=== PATIENT | female | born 1950 | race Caucasian/White ===

== ENCOUNTER 2017-04-15 11:39 | Inpatient (IN) | payer MEDICARE, MEDICAID ==
[~2017-04-15] VITALS: Ht 165.1 cm; Wt 77.1 kg
[2017-04-15] VITALS (10 sets, daily range): BP systolic 115–208; BP diastolic 58–85; PULSE 66–75; RESP 12–22; TEMP 97.3–98.5; O2SAT 8–98
[2017-04-15] MEDS ORDERED: PANTOPRAZOLE INJ 80 MG in SODIUM CHLORIDE 0.9% INJ 35 ML IV ONE (12:11)
--- NOTE | 2017-04-15 12:17 | PD ---
HPI Chief Complaint: GI Complaint Time Seen by Provider: 12:01 Travel History International Travel<30 days: No Contact w/Intl Traveler<30days: No Traveled to known affect area: No History of Present Illness HPI 67yo F with PMH of aortic valve replacement on coumadin, HTN, DM, CHF, COPD presents to the ED with c/o lower abdominal pain for a few days. States it is cramping, intermittent and mainly mid lower abdomen. Pt has been having intermittent episodes of bright red blood per rectum as well as blood diarrhea since yesterday. Had vomiting a few days ago but no longer nauseous and no blood in vomit. Pt states she does not feel more sob than normal. Denies any fever, chest pain, dysuria, hematuria, focal weakness or numbness. Does not remember last colonoscopy. PFSH Past Medical History Hx Anticoagulant Therapy: Yes Cardiovascular Problems: Yes Cerebrovascular Accident: Yes Diabetes: Yes Respiratory: Yes ?: Not Past Surgical History Hysterectomy: Yes Social History Tobacco Use: No Allergies-Medications (Allergen,Severity, Reaction): Coded Allergies: Penicillins (Verified Allergy, Unknown, 04/15/17) Reported Meds & Prescriptions Reported Meds & Active Scripts Active Reported Clonidine (Clonidine HCl) 0.1 Mg Tab 0.1 Mg PO DAILY Lasix (Furosemide) 40 Mg Tab 40 Mg PO BID Gabapentin 300 Mg Cap 300 Mg PO Q8HR Oxycodone (Oxycodone HCl) 30 Mg Tab 30 Mg PO Q12HR PRN Potassium Chloride Microencaps 20 Meq Tab 20 Meq PO BID Meclizine (Meclizine HCl) 12.5 Mg Tab 12.5 Mg PO BID PRN Jantoven (Warfarin) 5 Mg Tab 5 Mg PO DAILY Aricept (Donepezil HCl) 10 Mg Tablet 10 Mg PO DAILY Trazodone (Trazodone HCl) 50 Mg Tab 100 Mg PO DAILY Tizanidine (Tizanidine HCl) 2 Mg Cap 2 Mg PO DAILY PRN Review of Systems Except as stated in HPI: all other systems reviewed are Neg Physical Exam Narrative GENERAL: 67yo F in mild distress. SKIN: Focused skin assessment warm/dry. HEAD: Atraumatic. Normocephalic. EYES: Pupils equal and round. No scleral icterus. No injection or drainage. CARDIOVASCULAR: Regular rate and rhythm. No murmur appreciated. RESPIRATORY: No accessory muscle use. Clear to auscultation. Breath sounds equal bilaterally. GASTROINTESTINAL: Abdomen soft, +TTP suprapubic and LLQ. No rebound tenderness or guarding. RECTAL: No external hemorrhoids. Brown stool but hemaprompt positive. MUSCULOSKELETAL: No obvious deformities. No clubbing. No cyanosis. Bilateral lower extremity edema. NEUROLOGICAL: Awake and alert. No obvious cranial nerve deficits. Motor grossly within normal limits. Normal speech. PSYCHIATRIC: Appropriate mood and affect; insight and judgment normal. Data Data Last Documented VS Vital Signs Date Time Temp Pulse Resp B/P (MAP) Pulse Ox O2 Delivery O2 Flow Rate FiO2 04/15/17 14:20 16 04/15/17 14:16 75 138/65 (89) 96 Room Air 04/15/17 11:42 98.5 Orders Orders Complete Blood Count With Diff (04/15/17 12:11) Comprehensive Metabolic Panel (04/15/17 12:11) Lipase (04/15/17 12:11) Prothrombin Time / Inr (Pt) (04/15/17 12:11) Act Partial Throm Time (Ptt) (04/15/17 12:11) Urinalysis - C+S If Indicated (04/15/17 12:11) Type And Screen (04/15/17 12:11) Ecg Monitoring (04/15/17 12:11) Iv Access Insert/Monitor (04/15/17 12:11) Oximetry (04/15/17 12:11) Sodium Chloride 0.9% Flush (Ns Flush) (04/15/17 12:15) Sodium Chloride 0.9... W/Pantoprazole In (04/15/17 12:11) Sodium Chloride 0.9... W/Pantoprazole In (04/15/17 12:11) Ct Abd/Pel W Iv Contrast(Rout) (04/15/17 ) Morphine Inj (Morphine Inj) (04/15/17 13:45) Iohexol 350 Inj (Omnipaque 350 Inj) (04/15/17 13:54) Admit Order (Ed Use Only) (04/15/17 14:32) Labs Laboratory Tests Test 04/15/17 12:20 04/15/17 14:30 White Blood Count 13.0 TH/MM3 Red Blood Count 5.59 MIL/MM3 Hemoglobin 14.0 GM/DL Hematocrit 44.0 % Mean Corpuscular Volume 78.7 FL Mean Corpuscular Hemoglobin 25.1 PG Mean Corpuscular Hemoglobin Concent 31.9 % Red Cell Distribution Width 20.4 % Platelet Count 292 TH/MM3 Mean Platelet Volume 7.9 FL Neutrophils (%) (Auto) 67.3 % Lymphocytes (%) (Auto) 20.5 % Monocytes (%) (Auto) 9.0 % Eosinophils (%) (Auto) 2.7 % Basophils (%) (Auto) 0.5 % Neutrophils # (Auto) 8.8 TH/MM3 Lymphocytes # (Auto) 2.7 TH/MM3 Monocytes # (Auto) 1.2 TH/MM3 Eosinophils # (Auto) 0.4 TH/MM3 Basophils # (Auto) 0.1 TH/MM3 CBC Comment DIFF FINAL Differential Comment Prothrombin Time 39.4 SEC Prothromb Time International Ratio 3.4 RATIO Activated Partial Thromboplast Time 51.8 SEC Blood Urea Nitrogen 16 MG/DL Creatinine 1.16 MG/DL Random Glucose 115 MG/DL Total Protein 7.1 GM/DL Albumin 3.2 GM/DL Calcium Level 8.8 MG/DL Alkaline Phosphatase 107 U/L Aspartate Amino Transf (AST/SGOT) 19 U/L Alanine Aminotransferase (ALT/SGPT) 20 U/L Total Bilirubin 0.2 MG/DL Sodium Level 139 MEQ/L Potassium Level 3.7 MEQ/L Chloride Level 106 MEQ/L Carbon Dioxide Level 26.9 MEQ/L Anion Gap 6 MEQ/L Estimat Glomerular Filtration Rate 46 ML/MIN Lipase 200 U/L MDM Medical Decision Making Medical Screen Exam Complete: Yes Emergency Medical Condition: Yes Interpretation(s) Laboratory Tests Test 04/15/17 12:20 04/15/17 14:30 White Blood Count 13.0 TH/MM3 (4.0-11.0) Red Blood Count 5.59 MIL/MM3 (4.00-5.30) Hemoglobin 14.0 GM/DL (11.6-15.3) Hematocrit 44.0 % (35.0-46.0) Mean Corpuscular Volume 78.7 FL (80.0-100.0) Mean Corpuscular Hemoglobin 25.1 PG (27.0-34.0) Mean Corpuscular Hemoglobin Concent 31.9 % (32.0-36.0) Red Cell Distribution Width 20.4 % (11.6-17.2) Platelet Count 292 TH/MM3 (150-450) Mean Platelet Volume 7.9 FL (7.0-11.0) Neutrophils (%) (Auto) 67.3 % (16.0-70.0) Lymphocytes (%) (Auto) 20.5 % (9.0-44.0) Monocytes (%) (Auto) 9.0 % (0.0-8.0) Eosinophils (%) (Auto) 2.7 % (0.0-4.0) Basophils (%) (Auto) 0.5 % (0.0-2.0) Neutrophils # (Auto) 8.8 TH/MM3 (1.8-7.7) Lymphocytes # (Auto) 2.7 TH/MM3 (1.0-4.8) Monocytes # (Auto) 1.2 TH/MM3 (0-0.9) Eosinophils # (Auto) 0.4 TH/MM3 (0-0.4) Basophils # (Auto) 0.1 TH/MM3 (0-0.2) CBC Comment DIFF FINAL Differential Comment Prothrombin Time 39.4 SEC (9.8-11.6) Prothromb Time International Ratio 3.4 RATIO Activated Partial Thromboplast Time 51.8 SEC (24.3-30.1) Blood Urea Nitrogen 16 MG/DL (7-18) Creatinine 1.16 MG/DL (0.50-1.00) Random Glucose 115 MG/DL (74-106) Total Protein 7.1 GM/DL (6.4-8.2) Albumin 3.2 GM/DL (3.4-5.0) Calcium Level 8.8 MG/DL (8.5-10.1) Alkaline Phosphatase 107 U/L (45-117) Aspartate Amino Transf (AST/SGOT) 19 U/L (15-37) Alanine Aminotransferase (ALT/SGPT) 20 U/L (10-53) Total Bilirubin 0.2 MG/DL (0.2-1.0) Sodium Level 139 MEQ/L (136-145) Potassium Level 3.7 MEQ/L (3.5-5.1) Chloride Level 106 MEQ/L (98-107) Carbon Dioxide Level 26.9 MEQ/L (21.0-32.0) Anion Gap 6 MEQ/L (5-15) Estimat Glomerular Filtration Rate 46 ML/MIN (>89) Lipase 200 U/L (73-393) Differential Diagnosis AV malformation vs. colitis vs. UTI vs. supratherapeutic INR Narrative Course 67yo F on coumadin with intermittent lower GI bleed since yesterday. States it is a large amount and bright red in the diarrhea. Pt also with abdominal pain that is mainly suprapubic. Pt given protonix bolus and drip. Labs reviewed, mild leukocytosis at 13,000. H/H normal at 14/44. Normal lipase. CMP unremarkable. INR therapeutic at 3.4. Pt given NS IVF and morphine 4mg IV which helped with pain. CTa/p showed no evidence of acute abdominal or pelvic process. Diverticulosis. UA is still pending. Vital signs and H/H is stable right now so will not give K centra to reverse anticoagulation. However, pt is high risk with intermittent large GI bleed and on anticoagulation so will admit to medicine and consult GI. Discussed with resident physician and accepted to Dr. Arevalo's service. [facility]pt Point of Care Internal Pos. & Neg. Controls: Passed Fecal Specimen Occult Blood: Positive Diagnosis Primary Impression: GI bleed Qualified Codes: K92.2 - Gastrointestinal hemorrhage, unspecified Admitting Information Admitting Physician Requests: it Karishma Brooks DO Apr 15, 2017 12:17
[2017-04-15 12:54] LABS: AUTOMATED NEUTROPHIL # 8.8 TH/MM3 (1.8-7.7); BASOPHIL # 0.1 TH/MM3 (0-0.2); BASOPHIL % 0.5 % (0.0-2.0); EOSINOPHIL # 0.4 TH/MM3 (0-0.4); EOSINOPHIL % 2.7 % (0.0-4.0); HEMO FLAGS DIFF FINAL; LYMPH % 20.5 % (9.0-44.0); LYMPHOCYTE # 2.7 TH/MM3 (1.0-4.8); MEAN CELL VOLUME 78.7 FL (80.0-100.0); MEAN CORPUSCULAR HEMOGLOBIN 25.1 PG (27.0-34.0); MEAN CORPUSCULAR HGB CONC 31.9 % (32.0-36.0); NEUT % 67.3 % (16.0-70.0); PLATELET COUNT 292 TH/MM3 (150-450); RED BLOOD COUNT 5.59 MIL/MM3 (4.00-5.30); RED CELL DISTRIBUTION WIDTH 20.4 % (11.6-17.2)
[2017-04-15 13:04] LABS: APTT (PATIENT) 51.8 SEC (24.3-30.1); INTERNATIONAL NORMALIZED RATIO 3.4 RATIO; PROTHROMBIN TIME - PATIENT 39.4 SEC (9.8-11.6)
[2017-04-15 13:15] LABS: ALT (GPT) 20 U/L (10-53); ANION GAP 6 MEQ/L (5-15); AST (GOT) 19 U/L (15-37); BICARBONATE 26.9 MEQ/L (21.0-32.0); BLOOD UREA NITROGEN 16 MG/DL (7-18); CHLORIDE 106 MEQ/L (98-107); GLOMERULAR FILTRATION RATE 46 ML/MIN (>89); POTASSIUM 3.7 MEQ/L (3.5-5.1); SODIUM (NA) 139 MEQ/L (136-145)
[2017-04-15 13:18] LABS: ALKALINE PHOSPHATASE 107 U/L (45-117); TOTAL BILIRUBIN ADULT 0.2 MG/DL (0.2-1.0)
[2017-04-15] MEDS ORDERED: TIZA2CAP3 PO (13:19)
[2017-04-15] MEDS ORDERED: FURO1TAB60 PO (13:19)
[2017-04-15] MEDS ORDERED: MECL12.574 PO (13:19)
[2017-04-15] MEDS ORDERED: ARIC10TA2 PO (13:19)
[2017-04-15] MEDS ORDERED: JANT5TAB PO (13:19)
[2017-04-15] MEDS ORDERED: GABA300C5 PO (13:19)
[2017-04-15] MEDS ORDERED: OXYC30TA PO (13:19)
[2017-04-15] MEDS ORDERED: POTA20TA5 PO (13:19)
[2017-04-15] MEDS ORDERED: TRAZ50TA12 PO (13:19)
[2017-04-15] MEDS: SODIUM CHLORIDE 0.9% FLUSH 10 ML FLUSH IVF PRN ×2 (13:20→14:14)
[2017-04-15] MEDS ORDERED: CLON0.1T PO (13:20)
[2017-04-15] MEDS: PANTOPRAZOLE INJ 80 MG in SODIUM CHLORIDE 0.9% INJ 100 ML IV SCH ×2 (13:21→22:11)
[2017-04-15] MEDS ORDERED: MORPHINE SULFATE 4 MG/ML INJ IV PUSH ONE (13:45)
[2017-04-15] MEDS ORDERED: IOHEXOL 350 MG/ML 10 ML VIAL (for RAD DIAG) IVCONTRAST ONE (13:54)
--- NOTE | 2017-04-15 14:16 | RADRPT ---
EXAM DATE/TIME: 04/15/2017 13:48 [facility] COMPARISON: No previous studies available for comparison. INDICATIONS : Rectal bleeding since yesterday with cramping IV CONTRAST: 9.96 cc Omnipaque 350 (iohexol) IV ORAL CONTRAST: No oral contrast ingested. RADIATION DOSE: 19.6 CTDIvol (mGy) MEDICAL HISTORY : Cardiovascular disease. Hypertension. Chronic obstructive pulmonary disease. SURGICAL HISTORY : Hysterectomy. ENCOUNTER: Initial ACUITY: 2 days PAIN SCALE: 6/10 LOCATION: Bilateral lower quadrant TECHNIQUE: Volumetric scanning of the abdomen and pelvis was performed. Using automated exposure control and ad justment of the mA and/or kV according to patient size, radiation dose was kept as low as reasonably achievable to obtain optimal diagnostic quality images. DICOM format image data is available electro nically for review and comparison. FINDINGS: Examination of the lung bases demonstrates no abnormality. No pleural fluid is identified. No pulmona ry nodules are present. The liver and spleen are normal in size and no focal defects are identified. The gallbladder and pancreas are unremarkable. No intrahepatic or extrahepatic ductal dilatation is s een. The adrenal glands are unremarkable. The right kidney is unremarkable. There is a single simple cyst in the left kidney measuring 2 cm in the renal pelvis. Examination of the pelvis demonstrates no evidence of free fluid or pelvic mass. No abnormally enlarg ed inguinal or retroperitoneal lymph nodes are present. The bladder is unremarkable. There is diverti culosis without evidence of diverticulitis. CONCLUSION: 1. No evidence of acute abdominal or pelvic process. No masses are identified. 2. Diverticulosis without evidence of diverticulitis. Efrem Brown MD on April 15, 2017 at 14:13 Board Certified Radiologist. This report was verified electronically.
--- NOTE | 2017-04-15 14:33 | HHI.HP ---
HPI Service Family Medicine Primary Care Physician No Primary Care Physician Admission Diagnosis Diagnoses: International Travel<30 Days: No Contact w/Intl Traveler<30days: No Known Affected Area: No History of Present Illness 67yo F with PMH of aortic valve replacement on Coumadin, HTN, DM, CHF, COPD, KAREL , dementia, presents to the ED with c/o BRBPR and lower abdominal pain for a few days. Her BRBPR started before bed last night, around 11pm. She c/o bloody diarrhea all night long with associated crampy abdominal pain. She reports about 6 episodes of bloody diarrhea last night. She described it as bright red, chunky liquid diarrhea. She also c/o abdominal cramping for several days, located low across her abdomen. She didn''t know what to do. She tried heating pads, which helped a little. She describes the pain as crampy pressure, sort of like gas pain. No radiation. 7/10 at worst, 5/10 right now. She never had this pain or BRBPR before. She reports HINOJOSA, which is at baseline. Had vomiting a few days ago but no longer nauseous and no blood in vomit. She denies any fever, chest pain, dysuria, hematuria, focal weakness or numbness. Does not remember last colonoscopy. (Dale Biggs MD R2) Review of Systems Constitutional: COMPLAINS OF: Fatigue, DENIES: Fever, Weight gain, Weight loss , Chills Endocrine: DENIES: Polydipsia, Polyuria, Polyphagia Eyes: DENIES: Blurred vision, Diplopia, Vision loss, Double Vision Ears, nose, mouth, throat: DENIES: Hearing loss, Throat pain, Running Nose Respiratory: COMPLAINS OF: Shortness of breath, DENIES: Cough, Wheezing, Sputum production Cardiovascular: COMPLAINS OF: Dyspnea on Exertion (can walk 1/2 block at baseline) Gastrointestinal: COMPLAINS OF: Abdominal pain, Bloody stools, Diarrhea, DENIES : Black stools, Constipation, Nausea, Vomiting Genitourinary: DENIES: Urgency, Dysuria Musculoskeletal: COMPLAINS OF: Back pain, DENIES: Joint pain, Muscle aches, Stiffness, Joint Swelling, Neck pain Integumentary: DENIES: Pruritus, Rash Hematologic/lymphatic: DENIES: Bruising, Lymphadenopathy Neurologic: DENIES: Headache, Localized weakness (Dale Biggs MD R2) Past Family Social History Past Medical History aortic valve mechanical replacement on coumadin, HTN, DM, CHF, COPD, dementia, KAREL Past Surgical History aortic valve mechanical replacement appendectomy as child tonsilectomy as child carotid artery surgery Reported Medications Reported Meds & Active Scripts Active Reported Clonidine (Clonidine HCl) 0.1 Mg Tab 0.1 Mg PO DAILY Lasix (Furosemide) 40 Mg Tab 40 Mg PO BID Gabapentin 300 Mg Cap 300 Mg PO Q8HR Oxycodone (Oxycodone HCl) 30 Mg Tab 30 Mg PO Q12HR PRN Potassium Chloride Microencaps 20 Meq Tab 20 Meq PO BID Meclizine (Meclizine HCl) 12.5 Mg Tab 12.5 Mg PO BID PRN Jantoven (Warfarin) 5 Mg Tab 5 Mg PO DAILY Aricept (Donepezil HCl) 10 Mg Tablet 10 Mg PO DAILY Trazodone (Trazodone HCl) 50 Mg Tab 100 Mg PO DAILY Tizanidine (Tizanidine HCl) 2 Mg Cap 2 Mg PO DAILY PRN (Dale Bigsg MD R2) Allergies: Coded Allergies: Penicillins (Verified Allergy, Unknown, 04/15/17) Active Ordered Medications Current Medications Medications (Trade) Dose Ordered Sig/Po Route Start Time Stop Time Status Last Admin (NS Flush) 2 ml UNSCH PRN IVF 04/15/17 12:15 04/15/17 14:14 Pantoprazole Sodium 80 mg/ Sodium Chloride 100 ml @ 10 mls/hr Q10H IV 04/15/17 12:11 04/15/17 13:21 Sodium Chloride 1,000 ml @ 125 mls/hr Q8H IV 04/15/17 14:50 (NS Flush) 2 ml UNSCH PRN IV FLUSH 04/15/17 15:00 (NS Flush) 2 ml BID IV FLUSH 04/15/17 21:00 (Zofran Inj) 4 mg Q6H PRN IV PUSH 04/15/17 15:00 (Protonix Inj) 40 mg DAILY IV PUSH 04/16/17 09:00 (Catapres) 0.1 mg DAILY PO 04/16/17 09:00 (Lasix) 40 mg BID PO 04/15/17 21:00 (Neurontin) 300 mg Q8HR PO 04/15/17 22:00 (Antivert) 12.5 mg BID PRN PO 04/15/17 15:00 (KCl) 20 meq BID PO 04/15/17 21:00 (Zanaflex) 2 mg DAILY PRN PO 04/15/17 15:00 (Desyrel) 100 mg DAILY PO 04/16/17 09:00 (Coumadin) 5 mg DAILY PO 04/16/17 09:00 (Aricept) 10 mg DAILY PO 04/16/17 09:00 Non-Formulary Medication 30 mg Q12H PRN PO 04/15/17 15:00 (Duoneb Neb) 1 ampule Q6HR NEB PRN NEB 04/15/17 15:00 Family History Her daughter has heart problems, also had aortic stenosis, valve replacement, and now needs a heart transplant. Social History Patient lives with her significant other and grandson in an apartment. She has family who help. She denied any tobacco, ethanol, or drug use. (Dale Biggs MD R2) Physical Exam Vital Signs Vital Signs Date Time Temp Pulse Resp B/P (MAP) Pulse Ox O2 Delivery O2 Flow Rate FiO2 04/15/17 14:16 75 17 138/65 (89) 96 Room Air 04/15/17 12:27 69 14 183/79 (113) 97 Room Air 04/15/17 12:26 96 Room Air 04/15/17 11:42 98.5 68 18 198/84 (122) 96 Room Air Physical Exam GENERAL: 67yo F in no acute distress. SKIN: Focused skin assessment warm/dry. HEAD: Atraumatic. Normocephalic. EYES: Pupils equal and round. No scleral icterus. No injection or drainage. CARDIOVASCULAR: Regular rate and rhythm. iii/vi systolic murmur heard best at LUSB. RESPIRATORY: No accessory muscle use. Clear to auscultation. Breath sounds equal bilaterally. GASTROINTESTINAL: Abdomen soft, +TTP epigastric and LUQ, suprapubic and RLQ. No rebound tenderness or guarding. Per ED physician: RECTAL: No external hemorrhoids. Brown stool but hemoccult positive. MUSCULOSKELETAL: No obvious deformities. No clubbing. No cyanosis. Trace lower extremity edema in RLE. NEUROLOGICAL: Awake and alert. No obvious cranial nerve deficits. Motor grossly within normal limits. Normal speech. PSYCHIATRIC: Appropriate mood and affect; insight and judgment normal. Laboratory Laboratory Tests Test 04/15/17 12:20 White Blood Count 13.0 Red Blood Count 5.59 Hemoglobin 14.0 Hematocrit 44.0 Mean Corpuscular Volume 78.7 Mean Corpuscular Hemoglobin 25.1 Mean Corpuscular Hemoglobin Concent 31.9 Red Cell Distribution Width 20.4 Platelet Count 292 Mean Platelet Volume 7.9 Neutrophils (%) (Auto) 67.3 Lymphocytes (%) (Auto) 20.5 Monocytes (%) (Auto) 9.0 Eosinophils (%) (Auto) 2.7 Basophils (%) (Auto) 0.5 Neutrophils # (Auto) 8.8 Lymphocytes # (Auto) 2.7 Monocytes # (Auto) 1.2 Eosinophils # (Auto) 0.4 Basophils # (Auto) 0.1 CBC Comment DIFF FINAL Differential Comment Prothrombin Time 39.4 Prothromb Time International Ratio 3.4 Activated Partial Thromboplast Time 51.8 Blood Urea Nitrogen 16 Creatinine 1.16 Random Glucose 115 Total Protein 7.1 Albumin 3.2 Calcium Level 8.8 Alkaline Phosphatase 107 Aspartate Amino Transf (AST/SGOT) 19 Alanine Aminotransferase (ALT/SGPT) 20 Total Bilirubin 0.2 Sodium Level 139 Potassium Level 3.7 Chloride Level 106 Carbon Dioxide Level 26.9 Anion Gap 6 Estimat Glomerular Filtration Rate 46 Lipase 200 (Dale Biggs MD R2) Result Diagram: 04/15/17 1220 04/15/17 1220 Imaging Diverticulosis without diverticulitis. Course In emergency department, patient had CT abdomen and pelvis with IV contrast, normal saline IV bolus, UA, a PTT, PT/INR, lipase, CMP, CBC, morphine 4 mg IV, admission order. (Dale Biggs MD R2) Caprini VTE Risk Assessment Caprini VTE Risk Assessment: Mod/High Risk (score >= 2) VTE Pharm Contraindication: Coagulopathy,INR elevated Caprini Risk Assessment Model Point Value = 1 Point Value = 2 Point Value = 3 Point Value = 5 Age 41-60 Minor surgery BMI > 25 kg/m2 Swollen legs Varicose veins or History of unexplained or recurrent spontaneous Oral contraceptives or hormone replacement Sepsis (< 1 month) Serious lung disease, including pneumonia (< 1 month) Abnormal pulmonary function Acute myocardial infarction Congestive heart failure (< 1 month) History of inflammatory bowel disease Medical patient at bed rest Age 61-74 Arthroscopic surgery Major open surgery (> 45 min) Laparoscopic surgery (> 45 min) Malignancy Confined to bed (> 72 hours) Immobilizing plaster cast Central venous access Age >= 75 History of VTE Family history of VTE Factor V Leiden Prothrombin [id number] Lupus anticoagulant Anticardiolipin antibodies Elevated serum homocysteine Heparin-induced thrombocytopenia Other congenital or acquired thrombophilia Stroke (< 1 month) Elective arthroplasty Hip, pelvis, or leg fracture Acute spinal cord injury (< 1 month) Prophylaxis Regimen Total Risk Factor Score Risk Level Prophylaxis Regimen 0-1 Low Early ambulation 2 Moderate Order ONE of the following: *Sequential Compression Device (SCD) *Heparin 5000 units SQ BID 3-4 Higher Order ONE of the following medications: *Heparin 5000 units SQ TID *Enoxaparin/Lovenox 40 mg SQ daily (WT < 150 kg, CrCl > 30 mL/min) *Enoxaparin/Lovenox 30 mg SQ daily (WT < 150 kg, CrCl > 10-29 mL/min) *Enoxaparin/Lovenox 30 mg SQ BID (WT < 150 kg, CrCl > 30 mL/min) AND/OR *Sequential Compression Device (SCD) 5 or more Highest Order ONE of the following medications: *Heparin 5000 units SQ TID (Preferred with Epidurals) *Enoxaparin/Lovenox 40 mg SQ daily (WT < 150 kg, CrCl > 30 mL/min) *Enoxaparin/Lovenox 30 mg SQ daily (WT < 150 kg, CrCl > 10-29 mL/min) *Enoxaparin/Lovenox 30 mg SQ BID (WT < 150 kg, CrCl > 30 mL/min) AND *Sequential Compression Device (SCD) (Dale Biggs MD R2) Assessment and Plan Assessment and Plan 67yo F with PMH of aortic valve replacement on Coumadin, HTN, DM, CHF, COPD, KAREL , dementia, presents to the ED with c/o BRBPR and lower abdominal pain for a few days. Plan to admit for GI consult and likely intervention. Differential diagnosis includes diverticulitis vs. diverticulosis vs. AV malformation vs. colitis vs. UTI vs. elevated INR Code Status DNR/DNI (Dale Biggs MD R2) Attending Attestation THIS CASE WAS DISCUSSED WITH THE RESIDENT PHYSICIANS. I HAVE REVIEWED THE RECORD AND AGREE WITH THE ABOVE NOTE AND PLAN OF CARE WAS DISCUSSED. I HAVE AUTHORIZED THE ORDER FOR ADMISSION TO AN IN-PATIENT STATUS. (Rickey Arevalo MD) Problem List: (1) Lower GI bleed ICD Codes: K92.2 - Gastrointestinal hemorrhage, unspecified Plan: -consult GI -hold warfarin for 24h (p/w INR 3.4); no AC, SCDs ok -monitor H&H -Protonix IV -full liquid diet, Go-lytely, and NPO after midnight in preparation for c-scopy tomorrow. maintenance IVF when NPO. -type and screen -CBC, BMP, coags in morning -monitor vitals -monitor I&O (2) Abdominal pain ICD Codes: R10.9 - Unspecified abdominal pain Plan: -continue home medication of oxycodone -morphine PRN for break through pain (3) KAREL (obstructive sleep apnea) ICD Codes: G47.33 - Obstructive sleep apnea (adult) (pediatric) Plan: -CPAP or BiPAP at night (4) COPD (chronic obstructive pulmonary disease) ICD Codes: J44.9 - Chronic obstructive pulmonary disease, unspecified Plan: -DuoNebs PRN -O2 PRN (5) CHF (congestive heart failure) ICD Codes: I50.9 - Heart failure, unspecified Plan: -continue home medication of Lasix -continue home medication of potassium (6) HTN (hypertension) ICD Codes: I10 - Essential (primary) hypertension Plan: -continue home medication of clonidine (7) DM (diabetes mellitus) ICD Codes: E11.9 - Type 2 diabetes mellitus without complications Plan: -hold SSI until patient is eating -continue home medication of gabapentin (8) Contraindication to anticoagulation therapy ICD Codes: Z53.09 - Procedure and treatment not carried out because of other contraindication Plan: -patient with GI Bleed and INR of 3.4 (9) Nutrition, metabolism, and development symptoms ICD Codes: R63.8 - Other symptoms and signs concerning food and fluid intake Plan: Fluids: none while drinking, maintenance IVF when NPO Electrolytes: monitor Nutrition: Full liquid diet, then NPO at midnight (Dale Biggs MD R2) Physician Certification 2 Midnight Certification Type: Admission for Inpatient Services Order for Inpatient Services The services are ordered in accordance with Medicare regulations or non- Medicare payer requirements, as applicable. In the case of services not specified as inpatient-only, they are appropriately provided as inpatient services in accordance with the 2-midnight benchmark. Estimated LOS (days): 2 2 days is the estimated time the patient will need to remain in the hospital, assuming treatment plan goals are met and no additional complications. Post-Hospital Plan: Not yet determined (Dale Biggs MD R2) Dale Biggs MD R2 Apr 15, 2017 14:33 Rickey Arevalo MD Apr 16, 2017 16:18
[2017-04-15] MEDS ORDERED: SODIUM CHLOR 0.9% 1000 ML INJ 1,000 ML IV SCH (14:50)
[2017-04-15] MEDS ORDERED: MECLIZINE HCL 25 MG TAB PO PRN (15:00)
[2017-04-15] MEDS ORDERED: NON-FORMULARY DRUG (Oxycodone 30 MG) PO PRN (15:00)
[2017-04-15] MEDS ORDERED: ONDANSETRON HCL 4 MG/2 ML VIAL IV PUSH PRN (15:00)
[2017-04-15] MEDS ORDERED: RESP: ALBUTEROL 2.5 MG/IPRATROPIUM 0.5 MG NEB (PRN) NEB (15:00)
[2017-04-15] MEDS ORDERED: SODIUM CHLORIDE 0.9% FLUSH 10 ML FLUSH IV FLUSH PRN (15:00)
[2017-04-15 15:13] LABS: BLOOD, URINE NEG (NEG); GLUCOSE,URINE NEG (NEG); KETONE, URINE NEG (NEG); NITRITE,URINE NEG (NEG); SQUAMOUS EPITHELIAL CELL URINE <1 /hpf (0-5); URINE COLOR LIGHT-YELLOW (YELLW/STRAW)
[2017-04-15 15:17] LABS: COMMENT (UR) CULT NOT INDICATED; CULTURE IF INDICATED CULT NOT INDICATED
[2017-04-15] MEDS ORDERED: PEG (High)/E-LYTE SOLN 4000 ML BTL PO ONE ×2 (15:45→16:30)
--- NOTE | 2017-04-15 15:56 | PD.CONS ---
HPI History of Present Illness This is a 67 year old female who is on Coumadin for a mechanical valve replacement and presented to the emergency room for evaluation of abdominal pain with bloody diarrhea. She has been having diarrhea for the past 3 days, with abdominal cramping and 6 loose stools per day. Last night, she had a small amount of red blood mixed within her stool. This morning, she started having a large amount of red blood filling the toilet. She then had 5 more episodes, with a small amount of bright red blood mixed within the stools. She has associated bloating, lower abdominal cramping. She did have one episode of vomiting about 3 days ago, but has not had any further episodes. She denies any fevers or chills. There are no aggravating or alleviating factors. She last took her coumadin last night (5mg). She has a history a diverticulosis. Her last colonoscopy was about 20 years ago and she had several polyps removed at that time. CT scan abdomen and pelvis with IV contrast (04/15/17)---> No evidence of acute abdominal or pelvic process. No masses are identified. Diverticulosis without evidence of diverticulitis. She does not take Aleve or Ibuprofen. She denies any recent travel, suspicious foods, or sick contacts. (Luisa Dan) PFSH Past Medical History HTN DM CHF COPD Dementia Diverticulosis KAREL Valvular heart dz, s/p mechanical heart valve replacement on coumadin Past Surgical History Aortic valve replacement, mechanical Appendectomy Tonsillectomy Endarterectomy (Luisa Dan) Coded Allergies: Penicillins (Verified Allergy, Unknown, 04/15/17) Medications Allergies Coded Allergies Type Severity Reaction Last Updated Verified Penicillins Allergy Unknown 04/15/17 Yes Active Scripts Medications Dose Route/Sig Max Daily Dose Days Date Category Clonidine (Clonidine HCl) 0.1 Mg Tab 0.1 Mg PO DAILY 04/15/17 Reported Lasix (Furosemide) 40 Mg Tab 40 Mg PO BID 04/15/17 Reported Gabapentin 300 Mg Cap 300 Mg PO Q8HR 04/15/17 Reported Oxycodone (Oxycodone HCl) 30 Mg Tab 30 Mg PO Q12HR PRN 04/15/17 Reported Potassium Chloride Microencaps 20 Meq Tab 20 Meq PO BID 04/15/17 Reported Meclizine (Meclizine HCl) 12.5 Mg Tab 12.5 Mg PO BID PRN 04/15/17 Reported Jantoven (Warfarin) 5 Mg Tab 5 Mg PO DAILY 04/15/17 Reported Aricept (Donepezil HCl) 10 Mg Tablet 10 Mg PO DAILY 04/15/17 Reported Trazodone (Trazodone HCl) 50 Mg Tab 100 Mg PO DAILY 04/15/17 Reported Tizanidine (Tizanidine HCl) 2 Mg Cap 2 Mg PO DAILY PRN 04/15/17 Reported Family History Daughter has congenital heart problems, needs a heart transplant, also had Aortic Stenosis, valve replaced Father had throat cancer Mother had colon cancer Maternal aunt had breast cancer Social History No tobacco, rare ETOH use, illicit drug use. (Luisa Dan) Review of Systems Constitutional: DENIES: Fatigue, Fever, Weight loss, Chills, Change in appetite Respiratory: COMPLAINS OF: Shortness of breath, DENIES: Cough Cardiovascular: DENIES: Chest pain Gastrointestinal: COMPLAINS OF: Abdominal pain, Bloody stools, Diarrhea, Nausea , Vomiting, Heartburn, DENIES: Black stools, Constipation, Hematemesis Musculoskeletal: COMPLAINS OF: Joint pain Hematologic/lymphatic: COMPLAINS OF: Bruising Neurologic: DENIES: Headache Psychiatric: COMPLAINS OF: Confusion (Luisa Dan) GI Exam Vitals I&O Vital Signs Date Time Temp Pulse Resp B/P (MAP) Pulse Ox O2 Delivery O2 Flow Rate FiO2 04/15/17 15:28 98 21 04/15/17 14:20 16 04/15/17 14:16 75 17 138/65 (89) 96 Room Air 04/15/17 12:27 69 14 183/79 (113) 97 Room Air 04/15/17 12:26 96 Room Air 04/15/17 11:42 98.5 68 18 198/84 (122) 96 Room Air I/O 04/14/17 04/14/17 04/14/17 04/15/17 04/15/17 04/15/17 07:00 15:00 23:00 07:00 15:00 23:00 Intake Total 35 ml Output Total 500 ml Balance -465 ml Intake IV Total 35 ml Output Urine Total 500 ml # Voids 1 Laboratory Test 04/15/17 12:20 04/15/17 14:30 White Blood Count 13.0 TH/MM3 Red Blood Count 5.59 MIL/MM3 Hemoglobin 14.0 GM/DL Hematocrit 44.0 % Mean Corpuscular Volume 78.7 FL Mean Corpuscular Hemoglobin 25.1 PG Mean Corpuscular Hemoglobin Concent 31.9 % Red Cell Distribution Width 20.4 % Platelet Count 292 TH/MM3 Mean Platelet Volume 7.9 FL Neutrophils (%) (Auto) 67.3 % Lymphocytes (%) (Auto) 20.5 % Monocytes (%) (Auto) 9.0 % Eosinophils (%) (Auto) 2.7 % Basophils (%) (Auto) 0.5 % Neutrophils # (Auto) 8.8 TH/MM3 Lymphocytes # (Auto) 2.7 TH/MM3 Monocytes # (Auto) 1.2 TH/MM3 Eosinophils # (Auto) 0.4 TH/MM3 Basophils # (Auto) 0.1 TH/MM3 CBC Comment DIFF FINAL Differential Comment Prothrombin Time 39.4 SEC Prothromb Time International Ratio 3.4 RATIO Activated Partial Thromboplast Time 51.8 SEC Blood Urea Nitrogen 16 MG/DL Creatinine 1.16 MG/DL Random Glucose 115 MG/DL Total Protein 7.1 GM/DL Albumin 3.2 GM/DL Calcium Level 8.8 MG/DL Alkaline Phosphatase 107 U/L Aspartate Amino Transf (AST/SGOT) 19 U/L Alanine Aminotransferase (ALT/SGPT) 20 U/L Total Bilirubin 0.2 MG/DL Sodium Level 139 MEQ/L Potassium Level 3.7 MEQ/L Chloride Level 106 MEQ/L Carbon Dioxide Level 26.9 MEQ/L Anion Gap 6 MEQ/L Estimat Glomerular Filtration Rate 46 ML/MIN Lipase 200 U/L Urine Color LIGHT-YELLOW Urine Turbidity CLEAR Urine pH 6.0 Urine Specific [place] 1.014 Urine Protein NEG mg/dL Urine Glucose (UA) NEG mg/dL Urine Ketones NEG mg/dL Urine Occult Blood NEG Urine Nitrite NEG Urine Bilirubin NEG Urine Urobilinogen LESS THAN 2.0 MG/DL Urine Leukocyte Esterase NEG Urine WBC LESS THAN 1 /hpf Urine Squamous Epithelial Cells <1 /hpf Microscopic Urinalysis Comment CULT NOT INDICATED Physical Examination HEENT: Normocephalic; atraumatic; no jaundice. CHEST: CTA CARDIAC: RRR ABDOMEN: Soft, nondistended, moderate lower abdominal tenderness, no hepatosplenomegaly; bowel sounds are present in all four quadrants. EXTREMITIES:Trace ble edema. SKIN: Normal; no rash; no jaundice. SALT MAKER: No focal deficits; alert and oriented times three. (Luisa Dan) Assessment and Plan Plan ASSESSMENT: - Bloody diarrhea in patient. On coumadin for chronic anticoagulation for mechanical heart valve. Diarrhea x 6 days, started having bloody stools yesterday- small amount last night, one large episode this am, and then 5 smaller episodes. Associated lower abdominal cramping. CT scan abdomen and pelvis with IV contrast (04/15/17)---> No evidence of acute abdominal or pelvic process. No masses are identified. Diverticulosis without evidence of diverticulitis. She does not take Aleve or Ibuprofen. She denies any recent travel, suspicious foods, or sick contacts. Mother had colon cancer. Last colonoscopy 20 years ago, had several polyps removed. HH stable. INR 3.4. Send stool for cdiff, stool studies. EGD/Colonoscopy in am. - Abdominal pain. Lower abdominal cramping. CT as above. - GERD. Takes ppi at home. - Leukocytosis, mild. WBC 13.0. Get stool studies. - ISAIAS. per attending - Chronic anticoagulation with Coumadin for mechanical heart valve. - HTN, DM, CHF, COPD, Dementia, KAREL per attending. PLAN: - Plan for egd/colonoscopy - Obtain consents - Clear liquids - NPO after MN - Golytely - Stool studies, CDiff - Monitor HH - Transfuse as necessary - CBC, CMP, PT/INR in am - Call GI if INR > 2.0 in am - Supportive care - Further recommendations to follow based on results of above - Pt seen and examined by Dr. Hollis and myself and this note is written on his behalf (Luisa Dan) Physician Comments seen, examined agree with above (Natalie Hollis MD) Luisa Dan Apr 15, 2017 15:56 Natalie Hollis MD Apr 15, 2017 19:13
[2017-04-15] MEDS: SODIUM CHLOR 0.9% 1000 ML INJ 1,000 ML IV SCH (16:25)
[2017-04-15 16:55] LABS: HEMATOCRIT 39.1 % (35.0-46.0); REVIEW FLAG FINAL
[2017-04-15] MEDS: MORPHINE SULFATE 4 MG/ML INJ IV PUSH PRN ×2 (18:31→21:30)
--- NOTE | 2017-04-15 20:52 | HHI.HP ---
[facility] Service Family Medicine Primary Care Physician No Primary Care Physician Admission Diagnosis Diagnoses: (1) Lower GI bleed (2) Abdominal pain (3) KAREL (obstructive sleep apnea) (4) COPD (chronic obstructive pulmonary disease) (5) CHF (congestive heart failure) (6) HTN (hypertension) (7) DM (diabetes mellitus) (8) Contraindication to anticoagulation therapy (9) Nutrition, metabolism, and development symptoms International Travel<30 Days: No Contact w/Intl Traveler<30days: No Known Affected Area: No History of Present Illness 67 yo F presenting with lower abdominal cramping, diarrhea and bleeding per rectum. She states that over the last 5 days she has had diarrhea, but yesterday she began having bright red blood in her BMs and that they have remained watery/loose. She states she had one episode last night of a "large amount" of blood per rectum, and has since had 4-5 more, smaller episodes. She endorses lower abdominal cramping with this as well. She denies fevers/chills, denies nausea/vomiting, denies dysuria or hematuria. Denies sick contacts. Denies recent abx or Aleve/Ibuprofen use She endorses lower abd. cramping pain. She endorses some fatigue and SOB. She does have a h/o mechanical aortic valve replacement and is on coumadin with goal INR of 2.5-3.5 ---her INR today is 3.4 She has had a colonoscopy in the past but it has been >20 years and she states that they did have to remove polyps at that time. She has never had an EGD performed. Past Family Social History Past Medical History aortic valve mechanical replacement on coumadin, HTN, DM, CHF, COPD, dementia, KARLE Past Surgical History aortic valve mechanical replacement appendectomy as child tonsilectomy as child carotid artery surgery Allergies: Coded Allergies: Penicillins (Verified Allergy, Unknown, 04/15/17) Family History daughter has heart problems, needs a heart transplant, also had AStenosis, valve replaced Social History live with sig other and grandson in apartment. family helps. no ELIAN> Physical Exam Vital Signs Vital Signs Date Time Temp Pulse Resp B/P (MAP) Pulse Ox O2 Delivery O2 Flow Rate FiO2 04/15/17 19:36 18 04/15/17 17:21 72 04/15/17 16:19 04/15/17 16:00 98.2 70 12 115/58 (77) 96 04/15/17 15:30 68 22 140/65 (90) 98 Room Air 04/15/17 15:28 98 21 04/15/17 14:20 16 04/15/17 14:16 75 17 138/65 (89) 96 Room Air 04/15/17 12:27 69 14 183/79 (113) 97 Room Air 04/15/17 12:26 96 Room Air 04/15/17 11:42 98.5 68 18 198/84 (122) 96 Room Air Physical Exam GENERAL: 67yo F in no acute distress. SKIN: Focused skin assessment warm/dry. HEAD: Atraumatic. Normocephalic. EYES: Pupils equal and round. No scleral icterus. No injection or drainage. CARDIOVASCULAR: Regular rate and rhythm. ii/vi systolic murmur heard best at LUSB. RESPIRATORY: No accessory muscle use. Clear to auscultation. Breath sounds equal bilaterally. GASTROINTESTINAL: Abdomen soft, +TTP epigastric and LUQ, suprapubic and RLQ. No rebound tenderness or guarding. Per ED physician: RECTAL: No external hemorrhoids. Brown stool but hemoccult positive. MUSCULOSKELETAL: No obvious deformities. No clubbing. No cyanosis. Trace lower extremity edema in RLE. NEUROLOGICAL: Awake and alert. No obvious cranial nerve deficits. Motor grossly within normal limits. Normal speech. PSYCHIATRIC: Appropriate mood and affect; insight and judgment normal. Laboratory Laboratory Tests Test 04/15/17 12:20 04/15/17 14:30 04/15/17 16:10 White Blood Count 13.0 Red Blood Count 5.59 Hemoglobin 14.0 12.7 Hematocrit 44.0 39.1 Mean Corpuscular Volume 78.7 Mean Corpuscular Hemoglobin 25.1 Mean Corpuscular Hemoglobin Concent 31.9 Red Cell Distribution Width 20.4 Platelet Count 292 Mean Platelet Volume 7.9 Neutrophils (%) (Auto) 67.3 Lymphocytes (%) (Auto) 20.5 Monocytes (%) (Auto) 9.0 Eosinophils (%) (Auto) 2.7 Basophils (%) (Auto) 0.5 Neutrophils # (Auto) 8.8 Lymphocytes # (Auto) 2.7 Monocytes # (Auto) 1.2 Eosinophils # (Auto) 0.4 Basophils # (Auto) 0.1 CBC Comment DIFF FINAL Differential Comment Prothrombin Time 39.4 Prothromb Time International Ratio 3.4 Activated Partial Thromboplast Time 51.8 Blood Urea Nitrogen 16 Creatinine 1.16 Random Glucose 115 Total Protein 7.1 Albumin 3.2 Calcium Level 8.8 Alkaline Phosphatase 107 Aspartate Amino Transf (AST/SGOT) 19 Alanine Aminotransferase (ALT/SGPT) 20 Total Bilirubin 0.2 Sodium Level 139 Potassium Level 3.7 Chloride Level 106 Carbon Dioxide Level 26.9 Anion Gap 6 Estimat Glomerular Filtration Rate 46 Lipase 200 Urine Color LIGHT-YELLOW Urine Turbidity CLEAR Urine pH 6.0 Urine Specific [place] 1.014 Urine Protein NEG Urine Glucose (UA) NEG Urine Ketones NEG Urine Occult Blood NEG Urine Nitrite NEG Urine Bilirubin NEG Urine Urobilinogen LESS THAN 2.0 Urine Leukocyte Esterase NEG Urine WBC LESS THAN 1 Urine Squamous Epithelial Cells <1 Microscopic Urinalysis Comment CULT NOT INDICATED Result Diagram: 04/15/17 1610 04/15/17 1220 Imaging Last 48 hours Impressions Abdomen/Pelvis CT 04/15/17 0000 Signed Impressions: Service Date/Time: Saturday, April 15, 2017 13:48 - CONCLUSION: 1. No evidence of acute abdominal or pelvic process. No masses are identified. 2. Diverticulosis without evidence of diverticulitis. Efrem Brown MD Caprini VTE Risk Assessment Caprini VTE Risk Assessment: Mod/High Risk (score >= 2) VTE Pharm Contraindication: Coagulopathy,INR elevated Caprini Risk Assessment Model Point Value = 1 Point Value = 2 Point Value = 3 Point Value = 5 Age 41-60 Minor surgery BMI > 25 kg/m2 Swollen legs Varicose veins or History of unexplained or recurrent spontaneous Oral contraceptives or hormone replacement Sepsis (< 1 month) Serious lung disease, including pneumonia (< 1 month) Abnormal pulmonary function Acute myocardial infarction Congestive heart failure (< 1 month) History of inflammatory bowel disease Medical patient at bed rest Age 61-74 Arthroscopic surgery Major open surgery (> 45 min) Laparoscopic surgery (> 45 min) Malignancy Confined to bed (> 72 hours) Immobilizing plaster cast Central venous access Age >= 75 History of VTE Family history of VTE Factor V Leiden Prothrombin [id number] Lupus anticoagulant Anticardiolipin antibodies Elevated serum homocysteine Heparin-induced thrombocytopenia Other congenital or acquired thrombophilia Stroke (< 1 month) Elective arthroplasty Hip, pelvis, or leg fracture Acute spinal cord injury (< 1 month) Prophylaxis Regimen Total Risk Factor Score Risk Level Prophylaxis Regimen 0-1 Low Early ambulation 2 Moderate Order ONE of the following: *Sequential Compression Device (SCD) *Heparin 5000 units SQ BID 3-4 Higher Order ONE of the following medications: *Heparin 5000 units SQ TID *Enoxaparin/Lovenox 40 mg SQ daily (WT < 150 kg, CrCl > 30 mL/min) *Enoxaparin/Lovenox 30 mg SQ daily (WT < 150 kg, CrCl > 10-29 mL/min) *Enoxaparin/Lovenox 30 mg SQ BID (WT < 150 kg, CrCl > 30 mL/min) AND/OR *Sequential Compression Device (SCD) 5 or more Highest Order ONE of the following medications: *Heparin 5000 units SQ TID (Preferred with Epidurals) *Enoxaparin/Lovenox 40 mg SQ daily (WT < 150 kg, CrCl > 30 mL/min) *Enoxaparin/Lovenox 30 mg SQ daily (WT < 150 kg, CrCl > 10-29 mL/min) *Enoxaparin/Lovenox 30 mg SQ BID (WT < 150 kg, CrCl > 30 mL/min) AND *Sequential Compression Device (SCD) Assessment and Plan Assessment and Plan AV malformation vs. colitis vs. UTI vs. supratherapeutic INR Problem List: (1) Lower GI bleed ICD Codes: K92.2 - Gastrointestinal hemorrhage, unspecified Plan: Diverticular bleed vs. AVM vs. bleeding polyps vs. infection -consult GI - Stool sent for c.dificile and stool studies - Prep for colonoscopy in the am with Golytely -hold warfarin for 24h (p/w INR 3.4); no AC, SCDs ok -monitor H&H -Protonix IV -full liquid diet until NPO at midnight -type and screen -CBC, BMP, coags in morning -monitor vitals -monitor I&O - (2) Abdominal pain ICD Codes: R10.9 - Unspecified abdominal pain Plan: -continue home medication of oxycodone -morphine PRN for break through pain (3) KAREL (obstructive sleep apnea) ICD Codes: G47.33 - Obstructive sleep apnea (adult) (pediatric) Plan: -CPAP or BiPAP at night (4) COPD (chronic obstructive pulmonary disease) ICD Codes: J44.9 - Chronic obstructive pulmonary disease, unspecified Plan: -DuoNebs PRN -O2 PRN (5) CHF (congestive heart failure) ICD Codes: I50.9 - Heart failure, unspecified Plan: -continue home medication of Lasix -continue home medication of potassium (6) HTN (hypertension) ICD Codes: I10 - Essential (primary) hypertension Plan: -continue home medication of clonidine (7) DM (diabetes mellitus) ICD Codes: E11.9 - Type 2 diabetes mellitus without complications Plan: -hold SSI until patient is eating -continue home medication of gabapentin (8) Contraindication to anticoagulation therapy ICD Codes: Z53.09 - Procedure and treatment not carried out because of other contraindication Plan: -patient with GI Bleed and INR of 3.4 (9) Nutrition, metabolism, and development symptoms ICD Codes: R63.8 - Other symptoms and signs concerning food and fluid intake Plan: Fluids: none while drinking, maintenance IVF when NPO Electrolytes: monitor Nutrition: Full liquid diet, then NPO at midnight Physician Certification 2 Midnight Certification Type: Admission for Inpatient Services Order for Inpatient Services The services are ordered in accordance with Medicare regulations or non- Medicare payer requirements, as applicable. In the case of services not specified as inpatient-only, they are appropriately provided as inpatient services in accordance with the 2-midnight benchmark. Estimated LOS (days): 2 2 days is the estimated time the patient will need to remain in the hospital, assuming treatment plan goals are met and no additional complications. Post-Hospital Plan: Not yet determined Rickey Arevalo MD Apr 15, 2017 20:52
[2017-04-15] MEDS: SODIUM CHLORIDE 0.9% FLUSH 10 ML FLUSH IV FLUSH SCH (21:08)
[2017-04-15] MEDS: GABAPENTIN 300 MG CAP PO SCH (21:31)
[2017-04-15] MEDS: POTASSIUM CHLORIDE 20 MEQ CONTROLLED RELEASE TAB PO SCH (21:31)
[2017-04-15] MEDS: FUROSEMIDE 40 MG TAB PO SCH (21:32)
[2017-04-15 23:59] LABS: HEMATOCRIT 39.2 % (35.0-46.0); REVIEW FLAG FINAL
[2017-04-16] VITALS (10 sets, daily range): BP systolic 132–185; BP diastolic 61–83; PULSE 61–76; RESP 16–20; TEMP 96.3–98.4; O2SAT 92–98
[2017-04-16] MEDS: PANTOPRAZOLE INJ 80 MG in SODIUM CHLORIDE 0.9% INJ 100 ML IV SCH ×2 (01:30→19:01)
[2017-04-16] MEDS: SODIUM CHLOR 0.9% 1000 ML INJ 1,000 ML IV SCH ×3 (01:32→23:55)
[2017-04-16 03:00] LABS: C. DIFF EPI 027 PRESUMPTIVE NEGATIVE (NEGATIVE)
[2017-04-16 04:50] LABS: AUTOMATED NEUTROPHIL # 5.6 TH/MM3 (1.8-7.7); BASOPHIL # 0.1 TH/MM3 (0-0.2); BASOPHIL % 0.5 % (0.0-2.0); EOSINOPHIL # 0.4 TH/MM3 (0-0.4); EOSINOPHIL % 3.9 % (0.0-4.0); HEMATOCRIT 39.5 % (35.0-46.0); HEMO FLAGS DIFF FINAL; LYMPH % 27.2 % (9.0-44.0); LYMPHOCYTE # 2.7 TH/MM3 (1.0-4.8); MEAN CELL VOLUME 79.6 FL (80.0-100.0); MEAN CORPUSCULAR HEMOGLOBIN 25.1 PG (27.0-34.0); MEAN CORPUSCULAR HGB CONC 31.5 % (32.0-36.0); MONO % 11.1 % (0.0-8.0); NEUT % 57.3 % (16.0-70.0); PLATELET COUNT 241 TH/MM3 (150-450); RED BLOOD COUNT 4.96 MIL/MM3 (4.00-5.30); RED CELL DISTRIBUTION WIDTH 20.7 % (11.6-17.2); WHITE BLOOD COUNT 9.8 TH/MM3 (4.0-11.0)
[2017-04-16 04:58] LABS: APTT (PATIENT) 50.6 SEC (24.3-30.1); INTERNATIONAL NORMALIZED RATIO 2.7 RATIO; PROTHROMBIN TIME - PATIENT 31.5 SEC (9.8-11.6)
[2017-04-16 05:11] LABS: BICARBONATE 24.9 MEQ/L (21.0-32.0); POTASSIUM 4.2 MEQ/L (3.5-5.1)
[2017-04-16] MEDS: GABAPENTIN 300 MG CAP PO SCH ×4 (05:11→20:28)
[2017-04-16] MEDS: MORPHINE SULFATE 4 MG/ML INJ IV PUSH PRN ×4 (06:56→18:44)
[2017-04-16] MEDS: cloNIDine HCL 0.1 MG TAB PO SCH (09:00)
[2017-04-16] MEDS: traZODone HCL 50 MG TAB PO SCH ×2 (09:00→09:56)
[2017-04-16] MEDS ORDERED: WARFARIN SOD 5 MG TAB PO SCH ×2 (09:00→16:00)
[2017-04-16] MEDS: SODIUM CHLORIDE 0.9% FLUSH 10 ML FLUSH IV FLUSH SCH ×2 (09:00→20:28)
[2017-04-16] MEDS: POTASSIUM CHLORIDE 20 MEQ CONTROLLED RELEASE TAB PO SCH ×2 (09:56→20:27)
[2017-04-16] MEDS: DONEPEZIL HCL 5 MG TAB PO SCH (09:56)
[2017-04-16] MEDS: FUROSEMIDE 40 MG TAB PO SCH ×2 (09:57→20:27)
[2017-04-16] MEDS: PANTOPRAZOLE SODIUM 40 MG VIAL IV PUSH SCH (09:57)
--- NOTE | 2017-04-16 12:08 | HHI.FPPN ---
Subjective Remarks Patient lying in bed in no acute distress. Patient states she had another red bowel movement last night, similar to the episode of red bowel movement the previous night. She states her mild lower abdominal pain is the same and unchanged. She has been nothing by mouth since midnight in anticipation of her colonoscopy. She denies any chest pain/shortness of breath/dizziness. (Migdalia Baires MD R2) Objective Vitals Vital Signs Date Time Temp Pulse Resp B/P (MAP) Pulse Ox O2 Delivery O2 Flow Rate FiO2 04/16/17 09:00 98.4 61 16 135/75 (95) 96 04/16/17 08:18 92 21 04/16/17 07:01 16 04/16/17 04:25 96.3 65 17 132/61 (84) 94 04/16/17 01:47 98 BiPAP 04/16/17 01:47 98 21 04/16/17 00:30 96.8 63 18 137/64 (88) 93 04/15/17 22:42 98 8.00 21 04/15/17 20:00 97.3 66 18 208/85 (126) 95 04/15/17 17:21 72 04/15/17 16:19 04/15/17 16:00 98.2 70 12 115/58 (77) 96 04/15/17 15:30 68 22 140/65 (90) 98 Room Air 04/15/17 15:28 98 21 04/15/17 14:20 16 04/15/17 14:16 75 17 138/65 (89) 96 Room Air 04/15/17 12:27 69 14 183/79 (113) 97 Room Air 04/15/17 12:26 96 Room Air I/O 04/15/17 04/15/17 04/15/17 04/16/17 04/16/17 04/16/17 07:00 15:00 23:00 07:00 15:00 23:00 Intake Total 35 ml Output Total 500 ml Balance -465 ml Intake IV Total 35 ml Output Urine Total 500 ml # Voids 1 2 1 # Bowel Movements 4 1 (Migdalia Baires MD R2) Result Diagram: 04/16/17 0438 04/16/17437 Objective Remarks GENERAL: In no acute distress, lying in bed comfortably SKIN: Warm and dry. HEAD: Normocephalic. EYES: No scleral icterus. No injection or drainage. NECK: Supple, trachea midline. No JVD or lymphadenopathy. CARDIOVASCULAR: Regular rate and rhythm, 3/6 systolic murmur; consistent with exam from yesterday RESPIRATORY: Breath sounds equal bilaterally. No accessory muscle use. GASTROINTESTINAL: Abdomen soft,nondistended, tender to moderate palpation in lower quadrants and suprapubic area. MUSCULOSKELETAL: No cyanosis, or edema. BACK: Nontender without obvious deformity. No CVA tenderness. (Migdalia Baires MD R2) A/P Assessment and Plan 67yo F with PMH of aortic valve replacement on Coumadin, HTN, DM, CHF, COPD, KAREL , dementia, presents to the ED with c/o BRBPR and lower abdominal pain for a few days. Plan to admit for GI consult and likely intervention. Differential diagnosis includes diverticulitis vs. diverticulosis vs. AV malformation vs. colitis vs. UTI vs. elevated INR (Migdalia Baires MD R2) Attending Attestation Patient examined and case discussed with resident physicians I have read the above note and agree with the assessment/plan as discussed with me I was involved in all medical decision making for this patient GI has evaluated the patient and recommend panendoscopy - Patient did not receive her FFP and her INR remains elevated at 2.7 - Colonoscopy rescheduled for tomorrow morning, she is to receive FFP in the morning prior to procedure - She will be nothing by mouth after midnight Rickey Arevalo M.D. (Rickey Arevalo MD) Problem List: (1) Lower GI bleed ICD Codes: K92.2 - Gastrointestinal hemorrhage, unspecified Plan: -consult GI -hold warfarin for 24h (ends at 3PM today) , INR 3.4 --> 2.7 -monitor H&H: 14 --> 12.7 --> 12.7 --> 12.4 -Protonix IV -full liquid diet, Go-lytely, and NPO after midnight in preparation for colonoscopy today. maintenance IVF when NPO. (2) Abdominal pain ICD Codes: R10.9 - Unspecified abdominal pain Plan: -continue home medication of oxycodone -morphine PRN for break through pain (3) KAREL (obstructive sleep apnea) ICD Codes: G47.33 - Obstructive sleep apnea (adult) (pediatric) Plan: -CPAP or BiPAP at night (4) COPD (chronic obstructive pulmonary disease) ICD Codes: J44.9 - Chronic obstructive pulmonary disease, unspecified Plan: -DuoNebs PRN -O2 PRN (5) CHF (congestive heart failure) ICD Codes: I50.9 - Heart failure, unspecified Plan: -continue home medication of Lasix -continue home medication of potassium (6) HTN (hypertension) ICD Codes: I10 - Essential (primary) hypertension Plan: -continue home medication of clonidine (7) DM (diabetes mellitus) ICD Codes: E11.9 - Type 2 diabetes mellitus without complications Plan: -hold SSI until patient is eating -continue home medication of gabapentin (8) Contraindication to anticoagulation therapy ICD Codes: Z53.09 - Procedure and treatment not carried out because of other contraindication Plan: -patient with GI Bleed and INR of 3.4 (9) Nutrition, metabolism, and development symptoms ICD Codes: R63.8 - Other symptoms and signs concerning food and fluid intake Plan: Fluids: none while drinking, maintenance IVF when NPO Electrolytes: monitor Nutrition: Full liquid diet, then NPO at midnight (Migdalia Baires MD R2) Migdalia Baires MD R2 Apr 16, 2017 12:08 Rickey Arevalo MD Apr 16, 2017 16:23
--- NOTE | 2017-04-16 15:29 | HHI.GIFU ---
GI Follow-up Note Consult Follow-up Subjective: Patient laying in bed comfortably, feeling better.Had one bloody stool yesterday , nothing today.Scheduled for egd/colon today, ffp not given yet -we will reschedule in am .C diff negative Objective: PHYSICAL EXAMINATION: Vitals signs stable No fever Vital Signs Date Time Temp Pulse Resp B/P (MAP) Pulse Ox O2 Delivery O2 Flow Rate FiO2 04/16/17 12:00 97.6 71 18 185/83 (117) 98 04/16/17 09:00 98.4 61 16 135/75 (95) 96 04/16/17 08:18 92 21 HEENT: Pupils round and reactive to light; normocephalic; atraumatic; no jaundice. Throat is clear. NECK: Neck is supple, no JVD, no lymphadenopathy. CHEST: Chest is clear to auscultation and percussion. CARDIAC: Regular rate and rhythm with no murmur gallop or rubs. ABDOMEN: Soft, nondistended, nontender; no hepatosplenomegaly; bowel sounds are present in all four quadrants. EXTREMITIES: No clubbing, cyanosis, or edema. SKIN: Normal; no rash; no jaundice. FLEET SERVICE MANAGER: No focal deficits; alert and oriented times three. Available Data (labs, X- Rays, Procedues) : Laboratory Tests Test 04/15/17 12:20 04/15/17 14:30 04/15/17 16:10 04/15/17 23:27 White Blood Count 13.0 TH/MM3 Red Blood Count 5.59 MIL/MM3 Hemoglobin 14.0 GM/DL 12.7 GM/DL 12.7 GM/DL Hematocrit 44.0 % 39.1 % 39.2 % Mean Corpuscular Volume 78.7 FL Mean Corpuscular Hemoglobin 25.1 PG Mean Corpuscular Hemoglobin Concent 31.9 % Red Cell Distribution Width 20.4 % Platelet Count 292 TH/MM3 Mean Platelet Volume 7.9 FL Neutrophils (%) (Auto) 67.3 % Lymphocytes (%) (Auto) 20.5 % Monocytes (%) (Auto) 9.0 % Eosinophils (%) (Auto) 2.7 % Basophils (%) (Auto) 0.5 % Neutrophils # (Auto) 8.8 TH/MM3 Lymphocytes # (Auto) 2.7 TH/MM3 Monocytes # (Auto) 1.2 TH/MM3 Eosinophils # (Auto) 0.4 TH/MM3 Basophils # (Auto) 0.1 TH/MM3 CBC Comment DIFF FINAL Differential Comment Prothrombin Time 39.4 SEC Prothromb Time International Ratio 3.4 RATIO Activated Partial Thromboplast Time 51.8 SEC Blood Urea Nitrogen 16 MG/DL Creatinine 1.16 MG/DL Random Glucose 115 MG/DL Total Protein 7.1 GM/DL Albumin 3.2 GM/DL Calcium Level 8.8 MG/DL Alkaline Phosphatase 107 U/L Aspartate Amino Transf (AST/SGOT) 19 U/L Alanine Aminotransferase (ALT/SGPT) 20 U/L Total Bilirubin 0.2 MG/DL Sodium Level 139 MEQ/L Potassium Level 3.7 MEQ/L Chloride Level 106 MEQ/L Carbon Dioxide Level 26.9 MEQ/L Anion Gap 6 MEQ/L Estimat Glomerular Filtration Rate 46 ML/MIN Lipase 200 U/L Urine Color LIGHT-YELLOW Urine Turbidity CLEAR Urine pH 6.0 Urine Specific [place] 1.014 Urine Protein NEG mg/dL Urine Glucose (UA) NEG mg/dL Urine Ketones NEG mg/dL Urine Occult Blood NEG Urine Nitrite NEG Urine Bilirubin NEG Urine Urobilinogen LESS THAN 2.0 MG/DL Urine Leukocyte Esterase NEG Urine WBC LESS THAN 1 /hpf Urine Squamous Epithelial Cells <1 /hpf Microscopic Urinalysis Comment CULT NOT INDICATED Test 04/16/17 01:15 04/16/17 04:38 Stool C. difficile Toxin (PCR) NEGATIVE Stl C. difficile Toxin Epiderm 027 PRESUMPTIVE NEGATIVE White Blood Count 9.8 TH/MM3 Red Blood Count 4.96 MIL/MM3 Hemoglobin 12.4 GM/DL Hematocrit 39.5 % Mean Corpuscular Volume 79.6 FL Mean Corpuscular Hemoglobin 25.1 PG Mean Corpuscular Hemoglobin Concent 31.5 % Red Cell Distribution Width 20.7 % Platelet Count 241 TH/MM3 Mean Platelet Volume 7.6 FL Neutrophils (%) (Auto) 57.3 % Lymphocytes (%) (Auto) 27.2 % Monocytes (%) (Auto) 11.1 % Eosinophils (%) (Auto) 3.9 % Basophils (%) (Auto) 0.5 % Neutrophils # (Auto) 5.6 TH/MM3 Lymphocytes # (Auto) 2.7 TH/MM3 Monocytes # (Auto) 1.1 TH/MM3 Eosinophils # (Auto) 0.4 TH/MM3 Basophils # (Auto) 0.1 TH/MM3 CBC Comment DIFF FINAL Differential Comment Prothrombin Time 31.5 SEC Prothromb Time International Ratio 2.7 RATIO Activated Partial Thromboplast Time 50.6 SEC Blood Urea Nitrogen 11 MG/DL Creatinine 0.78 MG/DL Random Glucose 85 MG/DL Calcium Level 8.0 MG/DL Sodium Level 143 MEQ/L Potassium Level 4.2 MEQ/L Chloride Level 112 MEQ/L Carbon Dioxide Level 24.9 MEQ/L Anion Gap 6 MEQ/L Estimat Glomerular Filtration Rate 73 ML/MIN ASSESSMENT/PLAN: gi bleeding possible secondary diverticulosis , colitis-no further bleeding inr high -ffp not infused yet Recommendations: clear liquid diet todya npo after midnight egd/colon in am inr in am if still high we will give ffp before procedure It was a pleasure seeing Kaylee Fontaine. Thank you for this consult. Entered by: Natalie Gómez MD Apr 16, 2017 15:29
[2017-04-16] MEDS ORDERED: BISACODYL EC 5 MG TABEC PO ONE (19:15)
[2017-04-16] MEDS ORDERED: MAGNESIUM CITRATE SOLN 300 ML BTL PO ONE (19:15)
[2017-04-16] MEDS: traZODone HCL 100 MG TAB PO SCH ×2 (20:28→20:34)
[2017-04-16 21:26] LABS: HEMATOCRIT 37.4 % (35.0-46.0); REVIEW FLAG FINAL
[2017-04-17] VITALS (7 sets, daily range): BP systolic 141–157; BP diastolic 63–92; PULSE 61–72; RESP 16–20; TEMP 96.7–97.6; O2SAT 94–96
[2017-04-17 04:08] LABS: BASOPHIL # 0.1 TH/MM3 (0-0.2); BASOPHIL % 0.7 % (0.0-2.0); EOSINOPHIL # 0.4 TH/MM3 (0-0.4); EOSINOPHIL % 4.1 % (0.0-4.0); HEMATOCRIT 38.5 % (35.0-46.0); HEMO FLAGS DIFF FINAL; LYMPH % 27.6 % (9.0-44.0); LYMPHOCYTE # 2.5 TH/MM3 (1.0-4.8); MEAN CELL VOLUME 79.7 FL (80.0-100.0); MEAN CORPUSCULAR HEMOGLOBIN 25.7 PG (27.0-34.0); MEAN CORPUSCULAR HGB CONC 32.2 % (32.0-36.0); MONO % 12.8 % (0.0-8.0); NEUT % 54.8 % (16.0-70.0); PLATELET COUNT 235 TH/MM3 (150-450); RED BLOOD COUNT 4.82 MIL/MM3 (4.00-5.30); RED CELL DISTRIBUTION WIDTH 20.3 % (11.6-17.2); WHITE BLOOD COUNT 9.1 TH/MM3 (4.0-11.0)
[2017-04-17] MEDS: PANTOPRAZOLE INJ 80 MG in SODIUM CHLORIDE 0.9% INJ 100 ML IV SCH (04:11)
[2017-04-17 04:20] LABS: INTERNATIONAL NORMALIZED RATIO 1.9 RATIO; PROTHROMBIN TIME - PATIENT 21.7 SEC (9.8-11.6)
[2017-04-17 04:25] LABS: BICARBONATE 26.6 MEQ/L (21.0-32.0)
[2017-04-17] MEDS: GABAPENTIN 300 MG CAP PO SCH (05:45)
--- NOTE | 2017-04-17 09:27 | GIPROC ---
[facility] [address] [facility]. [facility] [place], [address] EGD PROCEDURE REPORT EXAM DATE: 04/17/2017 PATIENT NAME: Kaylee Fontaine MR #: [id number] BIRTHDATE: 1950 ATTENDING: Natalie Hollis MD ORDER #: [id number] WILDLIFE REFUGE MANAGER: Adrián Wilson and Breanne Naqvi STATUS: inpatient INDICATIONS: The patient is a 67 yr old female here for an EGD due to diarrhea, abdominal pain PROCEDURE PERFORMED: EGD w/ biopsy MEDICATIONS: None and Per Anesthesia. TOPICAL ANESTHETIC: none CONSENT: The patient understands the risks and benefits of the procedure and understands that these risks include, but are not limited to: sedation, allergic reaction, infection, perforation and/or bleeding. Alternative means of evaluation and treatment include, among others: physical exam, x-rays, and/or surgical intervention. The patient elects to proceed with this endoscopic procedure. medical equipment was checked for proper function. Hand hygiene and appropriate measures for infection prevention was taken. After the risks, benefits and alternatives of the procedure were thoroughly explained, Informed consent was verified, confirmed and timeout was successfully executed by the treatment team. The patient was anesthetized with topical anesthesia and the EC-[id number] (Pedi C) endoscope was introduced through the mouth and advanced to the second portion of the duodenum. Retroflexed views revealed a hiatal hernia The gastroscope was then slowly withdrawn and removed. Gastritis antrum-biopsy esophagitis dital esophagus -biopsy duodenum normal -biopsy. ADVERSE EVENTS: There were no complications. IMPRESSIONS: 1. Gastritis antrum-biopsy esophagitis dital esophagus -biopsy duodenum normal -biopsy 2. Retroflexed views revealed a hiatal hernia RECOMMENDATIONS: 1. Await biopsy results. Biopsy results will not be ready for 7-10 days. If you don't hear from us in two weeks, call our office for biopsy results. 2. Anti-reflux regimen 3. Continue PPI 4. Resume diet hold second dose of ffp restart coumadin today trial of bentyl 10 mg po tid PATIENT CONDITION: stable DISPOSITION: Inpatient REPEAT EXAM: Return 1 year EGD Natalie Hollis MD eSigned: Natalie Hollis MD 04/17/2017 9:27 AM cc: PATIENT NAME: Kaylee Fontaine MR#: [id number]
--- NOTE | 2017-04-17 09:31 | GIPROC ---
[facility] [address] [facility]. [facility], [address] COLONOSCOPY PROCEDURE REPORT EXAM DATE: 04/17/2017 PATIENT NAME: Kaylee Fontaine MR #: [id number] BIRTHDATE: 1950 ENDOSCOPIST: Natalie Hollis MD ORDER #: [id number] MANAGER TRANSIT: Adrián Wilson and Breanne Naqvi STATUS: inpatient INDICATIONS: The patient is a 67 yr old female here for a colonoscopy due to diarrhea, abdominal pain PROCEDURE PERFORMED: Colonoscopy with biopsy MEDICATIONS: None and Per Anesthesia. PREP QUALITY: good PREP TYPE:Other: ESTIMATED BLOOD LOSS: None CONSENT: The patient understands the risks and benefits of the procedure and understands that these risks include, but are not limited to: sedation, allergic reaction, infection, perforation and/or bleeding. Alternative means of evaluation and treatment include, among others: physical exam, x-rays, and/or surgical intervention. The patient elects to proceed with this endoscopic procedure. medical equipment was checked for proper function. Hand hygiene and appropriate measures for infection prevention was taken. After the risks, benefits and alternatives of the procedure were thoroughly explained, Informed consent was verified, confirmed and timeout was successfully executed by the treatment team. A digital exam revealed external hemorrhoids The Pentax EC-[id number] endoscope was introduced through the anus and advanced to the cecum, which was identified by both the appendix and ileocecal valve. The instrument was then slowly withdrawn as the colon was fully examined. COLON FINDINGS: Diverticulosis mild colitis involving entire colon-biopsies from cecum/ascending, transverse, descending, sigmoid,rectum. Retroflexed views revealed internal hemorrhoids and Retroflexed views revealed small internal hemorrhoids The scope was then completely withdrawn from the patient and the procedure terminated. PROCEDURE WITHDRAWAL TIME:6minutes ADVERSE EVENTS: There were no complications. IMPRESSIONS: 1. Diverticulosis mild colitis involving entire colon-biopsies from cecum/ascending, transverse, descending, sigmoid,rectum 2. Retroflexed views revealed internal hemorrhoids 3. Retroflexed views revealed small internal hemorrhoids 4. Revealed external hemorrhoids RECOMMENDATIONS: 1. Await biopsy results. Biopsy results will not be ready for 7-10 days. If you don't hear from us in two weeks, call our office for results. 2. Probiotics from any [employer] or health food store 3. Resume diet ok to dc home from gi point ok to restart anticoagulation hold second unit of ffp if dc fu office 2 weeks start Bentyl 10 mg po tid RECALL: Return 1 year Colonoscopy Natalie Hollis MD eSigned: Natalie Hollis MD 04/17/2017 9:30 AM cc: PATIENT NAME: Kaylee Fontaine MR#: [id number]
[2017-04-17] MEDS: DONEPEZIL HCL 5 MG TAB PO SCH (10:24)
[2017-04-17] MEDS: SODIUM CHLORIDE 0.9% FLUSH 10 ML FLUSH IV FLUSH SCH (10:24)
[2017-04-17] MEDS: PANTOPRAZOLE SODIUM 40 MG VIAL IV PUSH SCH (10:24)
[2017-04-17] MEDS: cloNIDine HCL 0.1 MG TAB PO SCH (10:24)
[2017-04-17] MEDS: POTASSIUM CHLORIDE 20 MEQ CONTROLLED RELEASE TAB PO SCH (10:24)
[2017-04-17] MEDS: FUROSEMIDE 40 MG TAB PO SCH (10:24)
[2017-04-17] MEDS: SODIUM CHLOR 0.9% 1000 ML INJ 1,000 ML IV SCH (10:25)
[2017-04-17] MEDS: MORPHINE SULFATE 4 MG/ML INJ IV PUSH PRN (10:27)
[2017-04-17 11:15] LABS: HEMATOCRIT 38.3 % (35.0-46.0); REVIEW FLAG FINAL
--- NOTE | 2017-04-17 11:46 | HHI.FPPN ---
Subjective Remarks Patient seen and examined bedside after she returned from colonoscopy. Patient said she spoke with the GI after the colonoscopy and he told her that she has diverticulosis and colitis. She is feeling great today and happy that the procedure is over. The patient continues to have mild lower abdominal pain. She would like to know when she can go home. Patient denies any fever/chills. Patient denies any chest pain/shortness of breath or dizziness. (Migdalia Baires MD R2) Objective Vitals Vital Signs Date Time Temp Pulse Resp B/P (MAP) Pulse Ox O2 Delivery O2 Flow Rate FiO2 04/17/17 09:25 97.5 63 16 168/75 (106) 95 Room Air 04/17/17 06:45 16 04/17/17 06:08 96.7 71 17 157/63 94 04/17/17 04:00 97.1 67 16 154/92 (112) 96 04/17/17 00:06 65 04/17/17 00:00 97.0 66 16 141/64 (89) 96 04/16/17 21:30 94 04/16/17 21:30 92 21 04/16/17 20:29 67 04/16/17 20:00 98.3 67 17 165/78 (107) 95 04/16/17 16:00 97.9 76 20 149/74 (99) 94 04/16/17 12:00 97.6 71 18 185/83 (117) 98 I/O 04/16/17 04/16/17 04/16/17 04/17/17 04/17/17 04/17/17 07:00 15:00 23:00 07:00 15:00 23:00 Intake Total 0 ml 360 ml 150 ml 400 ml Balance 0 ml 360 ml 150 ml 400 ml Intake Oral 0 ml 360 ml 0 ml FFP 100 ml Blood Product IV Normal Saline Flush 50 ml Other 400 ml # Voids 2 3 2 2 # Bowel Movements 4 3 3 (Migdalia Baires MD R2) Result Diagram: 04/17/17 1005 04/17/17 0301 Objective Remarks GENERAL: In no acute distress, lying in bed comfortably, very happy and conversational SKIN: Warm and dry. HEAD: Normocephalic. EYES: No scleral icterus. No injection or drainage. NECK: Supple, trachea midline. No JVD or lymphadenopathy. CARDIOVASCULAR: Regular rate and rhythm, 3/6 systolic murmur; consistent with exam from yesterday RESPIRATORY: Decreased breath sounds in lower lobes, coarse breath sounds throughout, no signs of focal consolidation, no wheezing or rhonchi. No accessory muscle use. GASTROINTESTINAL: Abdomen soft,nondistended, tender to mild palpation in lower quadrants and suprapubic area. MUSCULOSKELETAL: No cyanosis, or edema. BACK: Nontender without obvious deformity. No CVA tenderness. (Migdalia Baires MD R2) A/P Assessment and Plan 67yo F with PMH of aortic valve replacement on Coumadin, HTN, DM, CHF, COPD, KAREL , dementia, presents to the ED with c/o BRBPR and lower abdominal pain for a few days. Plan to admit for GI consult and likely intervention. Differential diagnosis includes diverticulitis vs. diverticulosis vs. AV malformation vs. colitis vs. UTI vs. elevated INR Discharge Planning Plan to discharge today with GI clearance (Migdalia Baires MD R2) Attending Attestation Pt. examined and case discussed with resident physicians. I have read the above note and agree with the assessment and plan as discussed with me. I was involved in all medical decision making for this patient. Rickey Arevalo MD (Rickey Arevalo MD) Problem List: (1) Lower GI bleed ICD Codes: K92.2 - Gastrointestinal hemorrhage, unspecified Plan: s/p Colonoscopy & Panendo: f/u GI recs: regular diet, probiotics, Bentyl 20mg TID, Continue PPI, Restart coumadin today, f/u with GI in 2 weeks, d/c COLON FINDINGS: Diverticulosis mild colitis involving entire colon-biopsies from cecum/ascending, transverse, descending, sigmoid,rectum. Retroflexed views revealed internal hemorrhoids and Retroflexed views revealed small internal hemorrhoids (2) Abdominal pain ICD Codes: R10.9 - Unspecified abdominal pain Plan: -continue home medication of oxycodone -morphine PRN for break through pain (3) KAREL (obstructive sleep apnea) ICD Codes: G47.33 - Obstructive sleep apnea (adult) (pediatric) Plan: -CPAP or BiPAP at night (4) COPD (chronic obstructive pulmonary disease) ICD Codes: J44.9 - Chronic obstructive pulmonary disease, unspecified Plan: -DuoNebs PRN -O2 PRN (5) CHF (congestive heart failure) ICD Codes: I50.9 - Heart failure, unspecified Plan: -continue home medication of Lasix -continue home medication of potassium (6) HTN (hypertension) ICD Codes: I10 - Essential (primary) hypertension Plan: -continue home medication of clonidine (7) DM (diabetes mellitus) ICD Codes: E11.9 - Type 2 diabetes mellitus without complications Plan: -hold SSI until patient is eating -continue home medication of gabapentin (8) Contraindication to anticoagulation therapy ICD Codes: Z53.09 - Procedure and treatment not carried out because of other contraindication Status: Resolved Plan: -may d/c and resume coumadin regimen per GI (9) Nutrition, metabolism, and development symptoms ICD Codes: R63.8 - Other symptoms and signs concerning food and fluid intake Plan: Fluids: none while drinking, maintenance IVF when NPO Electrolytes: monitor Nutrition: Full liquid diet, then NPO at midnight (Migdalia Baires MD R2) Migdalia Baires MD R2 Apr 17, 2017 11:46 Rickey Arevalo MD Apr 17, 2017 22:49
[2017-04-17] MEDS ORDERED: OMEP20TA PO (12:18)
[2017-04-17] MEDS ORDERED: DICY20TA10 PO (12:18)
--- NOTE | 2017-04-17 12:19 | HHI.DCPOC ---
Discharge Care Plan Diagnosis: (1) Colitis (2) Diverticulosis (3) GI bleed (4) CHF (congestive heart failure) Goals to Promote Your Health * To prevent worsening of your condition and complications * To maintain your health at the optimal level Directions to Meet Your Goals Take your medications as prescribed Follow your dietary instruction Follow activity as directed Keep your appointments as scheduled Take your immunizations and boosters as scheduled If your symptoms worsen call your PCP, if no PCP go to Urgent Care Center or Emergency Room Smoking is Dangerous to Your Health. Avoid second hand smoke Call the 24-hour hour crisis hotline for domestic abuse at Migdalia Baires MD R2 Apr 17, 2017 12:19
[2017-04-17] MEDS ORDERED: DICYCLOMINE HCL 20 MG TAB PO SCH (13:00)
[2017-04-17] MEDS ORDERED: PROPOFOL 200 MG/20 ML AMP ONE (14:18)
--- NOTE | 2017-04-17 14:30 | EKG ---
Date Performed: 04/16/2017 Time Performed: 13:45:14 PTAGE: 67 years EKG: Sinus rhythm SEPTAL MYOCARDIAL INFARCTION , OF INDETERMINATE AGE Inferior and anterolateral T-wave changes are no nspecific, but consider ischemia ABNORMAL ECG INTERPRETATION BASED ON A DEFAULT AGE OF 40 YEARS NO PREVIOUS TRACING DOCTOR: Luis A Galvez Interpretating Date/Time 04/17/2017 14:28:42
== END 2017-04-17 14:38 | disposition home or self-care (01) | DRG 378 ==
LOC: NEPD 11:39 → NEDA 14:34 → HOCB 16:29
PROVIDERS: ADMIT Family Medicine; ATTEND Family Medicine
PROC: 0DBL8ZX Excision of Transverse Colon, Via Natural or Artificial Opening Endoscopic, Diagnostic (ICD-10-PCS; 2017-04-17)
PROC: 0DBN8ZX Excision of Sigmoid Colon, Via Natural or Artificial Opening Endoscopic, Diagnostic (ICD-10-PCS; 2017-04-17)
PROC: 0DBP8ZX Excision of Rectum, Via Natural or Artificial Opening Endoscopic, Diagnostic (ICD-10-PCS; 2017-04-17)
PROC: 0DBM8ZX Excision of Descending Colon, Via Natural or Artificial Opening Endoscopic, Diagnostic (ICD-10-PCS; 2017-04-17)
PROC: 0DBH8ZX Excision of Cecum, Via Natural or Artificial Opening Endoscopic, Diagnostic (ICD-10-PCS; 2017-04-17)
PROC: 0DB98ZX Excision of Duodenum, Via Natural or Artificial Opening Endoscopic, Diagnostic (ICD-10-PCS; 2017-04-17)
PROC: 0DB78ZX Excision of Stomach, Pylorus, Via Natural or Artificial Opening Endoscopic, Diagnostic (ICD-10-PCS; 2017-04-17)
PROC: 0DB38ZX Excision of Lower Esophagus, Via Natural or Artificial Opening Endoscopic, Diagnostic (ICD-10-PCS; 2017-04-17)
PROC: 30233L1 Transfusion of Nonautologous Fresh Plasma into Peripheral Vein, Percutaneous Approach (ICD-10-PCS; principal; 2017-04-17 08:15)
PROC: 0DBK8ZX Excision of Ascending Colon, Via Natural or Artificial Opening Endoscopic, Diagnostic (ICD-10-PCS; 2017-04-17 08:15)
DX: K57.31 Diverticulosis of large intestine without perforation or abscess with bleeding (principal); N17.9 Acute kidney failure, unspecified; I11.0 Hypertensive heart disease with heart failure; I50.9 Heart failure, unspecified; F03.90 Unspecified dementia, unspecified severity, without behavioral disturbance, psychotic disturbance, mood disturbance, and anxiety; G47.33 Obstructive sleep apnea (adult) (pediatric); E11.9 Type 2 diabetes mellitus without complications; J44.9 Chronic obstructive pulmonary disease, unspecified; Z66 Do not resuscitate; K64.8 Other hemorrhoids; K52.9 Noninfective gastroenteritis and colitis, unspecified; K21.0 Gastro-esophageal reflux disease with esophagitis; K44.9 Diaphragmatic hernia without obstruction or gangrene; Z95.2 Presence of prosthetic heart valve; Z79.01 Long term (current) use of anticoagulants; Z86.73 Personal history of transient ischemic attack (TIA), and cerebral infarction without residual deficits
CPT/HCPCS: 36430; 74177; 80048; 80053; 81001; 83690; 85014; 85018; 85025; 85610; 85730; 86850; 86900; 86901; 86927; 87205; 87328; 87329; 87493; 87506; 88305; 93005; 94002; 94003; 96365; 96376; C9113; J2270; J7030; P9017; Q9967

== ENCOUNTER 2017-07-07 16:12 | Observation (INO) | payer MEDICARE, MEDICAID ==
[2017-07-07] VITALS (10 sets, daily range): BP systolic 133–212; BP diastolic 63–106; PULSE 66–87; RESP 16–22; TEMP 97.5–98.1; O2SAT 96–98
[~2017-07-07] VITALS: Ht 165.1 cm; Wt 77.0 kg
[~2017-07-07 16:12] MED LIST: ARIC10TA9 PO; CLON0.1T PO; DICY20TA10 PO; FURO1TAB60 PO; GABA300C5 PO; JANT5TAB PO; MECL12.574 PO; OMEP20TA93 PO; OXYC30TA PO; POTA20TA5 PO; TIZA2CAP3 PO; TRAZ50TA12 PO
[2017-07-07] MEDS ORDERED: SODIUM CHLORIDE 0.9% FLUSH 10 ML FLUSH IVF PRN (16:45)
[2017-07-07] MEDS ORDERED: RESP: ALBUTEROL 2.5 MG/IPRATROPIUM 0.5 MG NEB (SCH) INH ONE (16:45)
[2017-07-07 17:00] LABS: AUTOMATED NEUTROPHIL # 7.4 TH/MM3 (1.8-7.7); BASOPHIL # 0.1 TH/MM3 (0-0.2); BASOPHIL % 0.9 % (0.0-2.0); EOSINOPHIL # 0.2 TH/MM3 (0-0.4); EOSINOPHIL % 1.8 % (0.0-4.0); HEMATOCRIT 41.3 % (35.0-46.0); HEMOGLOBIN 13.5 GM/DL (11.6-15.3); LYMPH % 24.7 % (9.0-44.0); LYMPHOCYTE # 2.9 TH/MM3 (1.0-4.8); MEAN CORPUSCULAR HEMOGLOBIN 26.4 PG (27.0-34.0); MEAN CORPUSCULAR HGB CONC 32.6 % (32.0-36.0); MEAN PLATELET VOLUME 8.1 FL (7.0-11.0); MONO % 9.3 % (0.0-8.0); MONOCYTE # 1.1 TH/MM3 (0-0.9); NEUT % 63.3 % (16.0-70.0); PLATELET COUNT 347 TH/MM3 (150-450); RED CELL DISTRIBUTION WIDTH 18.3 % (11.6-17.2); WHITE BLOOD COUNT 11.6 TH/MM3 (4.0-11.0)
[2017-07-07 17:11] LABS: INTERNATIONAL NORMALIZED RATIO 2.8 RATIO; PROTHROMBIN TIME - PATIENT 28.7 SEC (9.8-11.6)
--- NOTE | 2017-07-07 17:17 | RADRPT ---
EXAM DATE/TIME: 07/07/2017 16:51 [place] COMPARISON: No previous studies available for comparison. INDICATIONS : Shortness of breath. MEDICAL HISTORY : Myocardial infarction. Hypercholesterolemia. Hypertension. COPD, CHF, Pneumonia. SURGICAL HISTORY : CABG. Coronary stent. ENCOUNTER: Initial ACUITY: 2 days PAIN SCORE: 0/10 LOCATION: Bilateral chest FINDINGS: Single AP view of the chest. Median sternotomy wires. Cervical spine hardware. Prosthetic cardiac sara ve. The lungs are clear. Moderate cardiac silhouette enlargement.. No evidence of pleural effusion or pneumothorax. CONCLUSION: Cardiac silhouette enlargement. No other acute cardiopulmonary disease identified. Mitchell Bradley MD on July 07, 2017 at 17:14 Board Certified Radiologist. This report was verified electronically.
[2017-07-07 17:21] LABS: ALBUMIN 3.1 GM/DL (3.4-5.0); ALT (GPT) 61 U/L (10-53); AST (GOT) 44 U/L (15-37); BICARBONATE 26.8 MEQ/L (21.0-32.0); BLOOD UREA NITROGEN 17 MG/DL (7-18); CALCIUM 8.9 MG/DL (8.5-10.1); CHLORIDE 108 MEQ/L (98-107); CREATININE 0.86 MG/DL (0.50-1.00); GLOMERULAR FILTRATION RATE 66 ML/MIN (>89); GLUCOSE,RANDOM 115 MG/DL (74-106); SODIUM (NA) 141 MEQ/L (136-145)
[2017-07-07 17:25] LABS: ALKALINE PHOSPHATASE 120 U/L (45-117); TOTAL BILIRUBIN ADULT 0.2 MG/DL (0.2-1.0); TOTAL PROTEIN 7.6 GM/DL (6.4-8.2); TROPONIN I 0.04 NG/ML (0.02-0.05)
--- NOTE | 2017-07-07 18:53 | PD ---
HPI Chief Complaint: Respiratory Symptoms Time Seen by Provider: 16:28 Travel History International Travel<30 days: No Contact w/Intl Traveler<30days: No Traveled to known affect area: No History of Present Illness HPI Patient is a 67-year-old female who comes in complaining of chest pain and shortness of breath. She says for the past few days her symptoms seem to be getting worse. She says that she is unable to lay flat due to shortness of breath. She says she gets short of breath after walking a block. She complains of swelling to her legs. She also reports coughing. She denies fever or chills. She has been using albuterol without relief of her symptoms. She says that she is also been getting episodes of chest pain. She says these episodes usually come on when she is exerting herself. She reports compliance with her medications. PFSH Past Medical History Hx Anticoagulant Therapy: Yes (COUMADIN) Arthritis: No Asthma: No Autoimmune Disease: No Heart Rhythm Problems: No Cancer: No Cardiovascular Problems: Yes (2011) High Cholesterol: Yes Chemotherapy: No Chest Pain: Yes Congestive Heart Failure: Yes COPD: Yes Cerebrovascular Accident: Yes (CVA AND TIA) Dementia: Yes Diabetes: Yes Patient Takes Glucophage: Yes Diminished Hearing: No Endocrine: No Gastrointestinal Disorders: Yes GERD: Yes Genitourinary: No Hiatal Hernia: No Hypertension: Yes Immune Disorder: No Kidney Stones: No Musculoskeletal: No Neurologic: Yes Psychiatric: No Reproductive: No Respiratory: Yes Migraines: No Myocardial Infarction: Yes Pneumonia: Yes Radiation Therapy: No Renal Failure: No Seizures: No Sickle Cell Disease: No Sleep Apnea: Yes (CPAP) Thyroid Disease: No Ulcer: No Tetanus Vaccination: > 5 Years Influenza Vaccination: No : 3 Para: 3 Miscarriage: 0 : 0 Past Surgical History Abdominal Surgery: No AICD: No Appendectomy: Yes Arteriovenous Shunt: No Cardiac Surgery: Yes (OPEN HEART- AORTIC VALVE REPLACED) Coronary Stent: Yes (X 2) Ear Surgery: No Endocrine Surgery: No Eye Surgery: No Genitourinary Surgery: No Gynecologic Surgery: No Hysterectomy: Yes Insulin Pump: No Joint Replacement: No Oral Surgery: No Pacemaker: No Thoracic Surgery: No Tonsillectomy: Yes Other Surgery: Yes (CERVICAL SX, LUMBAR SX, RIGHT ENDARECTOMY, COLONOSCOPY, ENDOSCOPY) Social History Alcohol Use: Yes (rare) Tobacco Use: No Substance Use: No Allergies-Medications (Allergen,Severity, Reaction): Coded Allergies: Penicillins (Verified Allergy, Unknown, 07/07/17) Reported Meds & Prescriptions Reported Meds & Active Scripts Active Omeprazole 20 Mg Tab 20 Mg PO DAILY Dicyclomine (Dicyclomine HCl) 20 Mg Tab 20 Mg PO TID 30 Days Reported Clonidine (Clonidine HCl) 0.1 Mg Tab 0.1 Mg PO DAILY Lasix (Furosemide) 40 Mg Tab 40 Mg PO BID Oxycodone (Oxycodone HCl) 30 Mg Tab 30 Mg PO Q12HR PRN Potassium Chloride Microencaps 20 Meq Tab 20 Meq PO BID Meclizine (Meclizine HCl) 12.5 Mg Tab 12.5 Mg PO BID PRN Jantoven (Warfarin) 5 Mg Tab 5 Mg PO DAILY Aricept (Donepezil HCl) 10 Mg Tablet 10 Mg PO DAILY Trazodone (Trazodone HCl) 50 Mg Tab 100 Mg PO DAILY Tizanidine (Tizanidine HCl) 2 Mg Cap 2 Mg PO DAILY PRN Review of Systems Except as stated in HPI: all other systems reviewed are Neg General / Constitutional: No: Fever, Chills HENT: No: Headaches, Lightheadedness Cardiovascular: Positive: Chest Pain or Discomfort Respiratory: Positive: Cough, Shortness of Breath, Wheezing Gastrointestinal: No: Nausea, Vomiting Musculoskeletal: Positive: Edema, No: Myalgias Skin: No Rash, No Change in Pigmentation Neurologic: No: Weakness, Dizziness Physical Exam Narrative GENERAL: Awake and alert, no acute distress. SKIN: Focused skin assessment warm/dry. No wounds or signs of infection. HEAD: Atraumatic. Normocephalic. EYES: Pupils equal and round. No scleral icterus. ENT: Mucous membranes pink and moist. NECK: Trachea midline. No JVD. CARDIOVASCULAR: Regular rate and rhythm. No murmur appreciated. RESPIRATORY: No accessory muscle use. Decreased breath sounds, occasional wheezes.. Breath sounds equal bilaterally. GASTROINTESTINAL: Abdomen soft, non-tender, nondistended. MUSCULOSKELETAL: No obvious deformities. No clubbing. No cyanosis. 2+ pitting edema bilateral lower extremities. NEUROLOGICAL: Awake and alert. No obvious cranial nerve deficits. Motor grossly within normal limits. Normal speech. PSYCHIATRIC: Appropriate mood and affect; insight and judgment normal. Data Data Last Documented VS Vital Signs Date Time Temp Pulse Resp B/P (MAP) Pulse Ox O2 Delivery O2 Flow Rate FiO2 07/07/17 17:25 20 98 Nasal Cannula 2.00 07/07/17 16:35 87 07/07/17 16:15 98.1 Orders Orders Electrocardiogram (07/07/17 ) Complete Blood Count With Diff (07/07/17 16:35) Comprehensive Metabolic Panel (07/07/17 16:35) B-Type Natriuretic Peptide (07/07/17 16:35) Act Partial Throm Time (Ptt) (07/07/17 16:35) Prothrombin Time / Inr (Pt) (07/07/17 16:35) Troponin I (07/07/17 16:35) Iv Access Insert/Monitor (07/07/17 16:35) Ecg Monitoring (07/07/17 16:35) Oximetry (07/07/17 16:35) Oxygen Administration (07/07/17 16:35) Chest, Single Ap (07/07/17 16:35) Sodium Chloride 0.9% Flush (Ns Flush) (07/07/17 16:45) Albuterol-Ipratropium Neb (Duoneb Neb) (07/07/17 16:45) Albuterol-Ipratropium Neb (Duoneb Neb) (07/07/17 19:00) Methylprednisolone So Succ Inj (Solumedr (07/07/17 19:00) Aspirin (Aspirin) (07/07/17 19:00) Admit Order (Ed Use Only) (07/07/17 ) Influenzae A/B Antigen (07/07/17 19:03) Place In Observation (07/07/17 ) Vital Signs (Adult) Q4H (07/07/17 19:02) Activity Bed Rest With Brp (07/07/17 ) Sieve Repairer / Telemetry JOYCE.Q8H (07/07/17 19:02) Sodium Chloride 0.9% Flush (Ns Flush) (07/07/17 21:00) Sodium Chloride 0.9% Flush (Ns Flush) (07/07/17 19:15) Creatine Kinase (Cpk) (07/07/17 23:00) Creatine Kinase (Cpk) (07/08/17 05:00) Troponin I (07/07/17 23:00) Troponin I (07/08/17 05:00) Complete Blood Count With Diff (07/08/17 06:00) Electrocardiogram (07/07/17 23:00) Electrocardiogram (07/08/17 05:00) Heparin Inj (Heparin Inj) (07/07/17 20:00) Methylprednisolone So Succ Inj (Solumedr (07/08/17 06:00) Albuterol-Ipratropium Neb (Duoneb Neb) (07/07/17 19:15) Labs Laboratory Tests Test 07/07/17 16:44 White Blood Count 11.6 TH/MM3 Red Blood Count 5.10 MIL/MM3 Hemoglobin 13.5 GM/DL Hematocrit 41.3 % Mean Corpuscular Volume 81.0 FL Mean Corpuscular Hemoglobin 26.4 PG Mean Corpuscular Hemoglobin Concent 32.6 % Red Cell Distribution Width 18.3 % Platelet Count 347 TH/MM3 Mean Platelet Volume 8.1 FL Neutrophils (%) (Auto) 63.3 % Lymphocytes (%) (Auto) 24.7 % Monocytes (%) (Auto) 9.3 % Eosinophils (%) (Auto) 1.8 % Basophils (%) (Auto) 0.9 % Neutrophils # (Auto) 7.4 TH/MM3 Lymphocytes # (Auto) 2.9 TH/MM3 Monocytes # (Auto) 1.1 TH/MM3 Eosinophils # (Auto) 0.2 TH/MM3 Basophils # (Auto) 0.1 TH/MM3 CBC Comment DIFF FINAL Differential Comment Prothrombin Time 28.7 SEC Prothromb Time International Ratio 2.8 RATIO Activated Partial Thromboplast Time 42.7 SEC Blood Urea Nitrogen 17 MG/DL Creatinine 0.86 MG/DL Random Glucose 115 MG/DL Total Protein 7.6 GM/DL Albumin 3.1 GM/DL Calcium Level 8.9 MG/DL Alkaline Phosphatase 120 U/L Aspartate Amino Transf (AST/SGOT) 44 U/L Alanine Aminotransferase (ALT/SGPT) 61 U/L Total Bilirubin 0.2 MG/DL Sodium Level 141 MEQ/L Potassium Level 3.5 MEQ/L Chloride Level 108 MEQ/L Carbon Dioxide Level 26.8 MEQ/L Anion Gap 6 MEQ/L Estimat Glomerular Filtration Rate 66 ML/MIN Troponin I 0.04 NG/ML B-Type Natriuretic Peptide 607 PG/ML MDM Medical Decision Making Medical Screen Exam Complete: Yes Emergency Medical Condition: Yes Medical Record Reviewed: Yes Interpretation(s) ECG shows normal sinus rhythm at 76, no ST elevation or depression, normal intervals Differential Diagnosis ACS versus COPD exacerbation versus CHF exacerbation versus pneumonia Narrative Course Patient is a 67-year-old female comes in complaining of chest pain or shortness of breath. Exam shows decreased breath sounds as well as lower extremity edema. IV established, labs sent. Labs show an elevated BNP to 607. Chest x- ray shows cardiomegaly without pulmonary edema. Troponin is negative. Patient given an aspirin. Given a DuoNeb. She says she felt some relief after the DuoNeb. Given an additional DuoNeb as well as a dose of Solu-Medrol. Patient to be admitted for COPD/ACS rule out. Diagnosis Primary Impression: COPD (chronic obstructive pulmonary disease) Qualified Codes: J44.1 - Chronic obstructive pulmonary disease with (acute) exacerbation Additional Impressions: CHF (congestive heart failure) Qualified Codes: I50.9 - Heart failure, unspecified Chest pain Qualified Codes: R07.9 - Chest pain, unspecified Admitting Information Admitting Physician Requests: Observation Scripts Lactobacillus Acidophilus (Lactobacillus Acidophilus) 1 Billion Cell Tab 1 TAB PO TIDAC for Nutritional Supplement, #30 TAB 0 Refills Prov: Kaden Ken MD 07/08/17 Albuterol 6.7 GM Inh (Proventil Hfa 6.7 GM Inh) 90 Mcg/Act Aer 2 PUFF INH Q4-6H Y for SHORTNESS OF BREATH, #1 INHALER 0 Refills Prov: Kaden Ken MD 07/08/17 Azithromycin (Azithromycin) 500 Mg Tab 500 MG PO DAILY for Infection, #5 TAB 0 Refills Prov: Kaden Ken MD 07/08/17 Prednisone (Prednisone) 20 Mg Tab 20 MG PO BID for Inflammation, #6 TAB 0 Refills Prov: Kaden Ken MD 07/08/17 Jocelin Perry MD Jul 07, 2017 18:53
[2017-07-07] MEDS ORDERED: methylPREDNISolone SOD SUCC 125 MG/2 ML VIAL IV PUSH ONE (19:00)
[2017-07-07] MEDS ORDERED: RESP: ALBUTEROL 2.5 MG/IPRATROPIUM 0.5 MG NEB (SCH) NEB ONE (19:00)
[2017-07-07] MEDS ORDERED: ASPIRIN 325 MG TAB PO ONE (19:00)
[2017-07-07] MEDS ORDERED: SODIUM CHLORIDE 0.9% FLUSH 10 ML FLUSH IV FLUSH PRN (19:15)
[2017-07-07] MEDS ORDERED: RESP: ALBUTEROL 2.5 MG/IPRATROPIUM 0.5 MG NEB (PRN) NEB (19:15)
--- NOTE | 2017-07-07 19:40 | HHI.HP ---
[facility] Primary Care Physician No Primary Care Physician Admission Diagnosis COPD, chest pain Diagnoses: Travel History International Travel<30 Days: No Contact w/Intl Traveler <30 Da: No Traveled to Known Affected Are: No History of Present Illness 67-year-old developed a past medical history of CHF, COPD, CAD, diabetes, hypertension, hyperlipidemia, dementia and degenerative disc disease presents to the emergency department with increasing shortness of breath and lower extremity edema. The patient reports her symptoms started yesterday. She endorses chest pain which is bilateral and worse with inspiration. She has a nonproductive cough. Positive chills, no fevers. Mild leukocytosis of 11.6. BNP 607. Chest x-ray without interstitial edema. EKG shows T-wave inversion in V5/56 with NSR and no ST segment elevations or depressions. Initial troponin negative. Review of Systems Positive chills Denies blurry vision, otorrhea, rhinorrhea Denies sore throat and cough Positive chest pain, shortness of breath No abdominal pain Denies constipation/diarrhea/nausea/vomiting Denies muscle pain/weakness No rashes Past Family Social History Past Medical History CHF (no recent echo) COPD Diabetes mellitus Dementia Hypertension Hyperlipidemia CAD Degenerative disc disease Past Surgical History Appendectomy Hysterectomy AVR for aortic stenosis Cardiac catheterization with stent placement 2 in 2011 Back surgery 3 Reported Medications Reported Meds & Active Scripts Active Omeprazole 20 Mg Tab 20 Mg PO DAILY Dicyclomine (Dicyclomine HCl) 20 Mg Tab 20 Mg PO TID 30 Days Reported Clonidine (Clonidine HCl) 0.1 Mg Tab 0.1 Mg PO DAILY Lasix (Furosemide) 40 Mg Tab 40 Mg PO BID Oxycodone (Oxycodone HCl) 30 Mg Tab 30 Mg PO Q12HR PRN Potassium Chloride Microencaps 20 Meq Tab 20 Meq PO BID Meclizine (Meclizine HCl) 12.5 Mg Tab 12.5 Mg PO BID PRN Jantoven (Warfarin) 5 Mg Tab 5 Mg PO DAILY Aricept (Donepezil HCl) 10 Mg Tablet 10 Mg PO DAILY Trazodone (Trazodone HCl) 50 Mg Tab 100 Mg PO DAILY Tizanidine (Tizanidine HCl) 2 Mg Cap 2 Mg PO DAILY PRN Allergies: Coded Allergies: Penicillins (Verified Allergy, Unknown, 07/07/17) Family History Negative for CAD/DM Social History Remote history of smoking. Denies alcohol, illicit drugs. Physical Exam Vital Signs Vital Signs Date Time Temp Pulse Resp B/P (MAP) Pulse Ox O2 Delivery O2 Flow Rate FiO2 07/07/17 17:25 20 98 Nasal Cannula 2.00 07/07/17 16:38 22 98 Room Air 07/07/17 16:35 87 22 185/96 (125) 98 Room Air 07/07/17 16:35 97 Room Air 07/07/17 16:15 98.1 87 16 149/106 (120) 96 Physical Exam GENERAL: female lying in bed SKIN: No rashes, ecchymoses or lesions. Cool and dry. HEAD: Atraumatic. Normocephalic. No temporal or scalp tenderness. EYES: Pupils equal round and reactive. Extraocular motions intact. No scleral icterus. No injection or drainage. ENT: Nose without bleeding, purulent drainage or septal hematoma. Throat without erythema, tonsillar hypertrophy or exudate. Uvula midline. Airway patent. NECK: Trachea midline. No JVD or lymphadenopathy. Supple, nontender, no meningeal signs. CARDIOVASCULAR: 3/6 BETTY. Regular rate and rhythm. RESPIRATORY: Bilateral wheezes. No rales or rhonchi. GASTROINTESTINAL: Abdomen soft, non-tender, nondistended. No hepato-splenomegaly , or palpable masses. No guarding. MUSCULOSKELETAL: 2+ pitting edema to the ankle. No calf tenderness. NEUROLOGICAL: Awake and alert. Cranial nerves II through XII intact. Motor and sensory grossly within normal limits. Normal speech. Laboratory Laboratory Tests Test 07/07/17 16:44 White Blood Count 11.6 Red Blood Count 5.10 Hemoglobin 13.5 Hematocrit 41.3 Mean Corpuscular Volume 81.0 Mean Corpuscular Hemoglobin 26.4 Mean Corpuscular Hemoglobin Concent 32.6 Red Cell Distribution Width 18.3 Platelet Count 347 Mean Platelet Volume 8.1 Neutrophils (%) (Auto) 63.3 Lymphocytes (%) (Auto) 24.7 Monocytes (%) (Auto) 9.3 Eosinophils (%) (Auto) 1.8 Basophils (%) (Auto) 0.9 Neutrophils # (Auto) 7.4 Lymphocytes # (Auto) 2.9 Monocytes # (Auto) 1.1 Eosinophils # (Auto) 0.2 Basophils # (Auto) 0.1 CBC Comment DIFF FINAL Differential Comment Prothrombin Time 28.7 Prothromb Time International Ratio 2.8 Activated Partial Thromboplast Time 42.7 Blood Urea Nitrogen 17 Creatinine 0.86 Random Glucose 115 Total Protein 7.6 Albumin 3.1 Calcium Level 8.9 Alkaline Phosphatase 120 Aspartate Amino Transf (AST/SGOT) 44 Alanine Aminotransferase (ALT/SGPT) 61 Total Bilirubin 0.2 Sodium Level 141 Potassium Level 3.5 Chloride Level 108 Carbon Dioxide Level 26.8 Anion Gap 6 Estimat Glomerular Filtration Rate 66 Troponin I 0.04 B-Type Natriuretic Peptide 607 Result Diagram: 07/07/17164307/07/171643 Caprin VTE Risk Assessment Caprin VTE Risk Assessment: Mod/High Risk (score >= 2) Caprini Risk Assessment Model Point Value = 1 Point Value = 2 Point Value = 3 Point Value = 5 Age 41-60 Minor surgery BMI > 25 kg/m2 Swollen legs Varicose veins or History of unexplained or recurrent spontaneous Oral contraceptives or hormone replacement Sepsis (< 1 month) Serious lung disease, including pneumonia (< 1 month) Abnormal pulmonary function Acute myocardial infarction Congestive heart failure (< 1 month) History of inflammatory bowel disease Medical patient at bed rest Age 61-74 Arthroscopic surgery Major open surgery (> 45 min) Laparoscopic surgery (> 45 min) Malignancy Confined to bed (> 72 hours) Immobilizing plaster cast Central venous access Age >= 75 History of VTE Family history of VTE Factor V Leiden Prothrombin [id number] Lupus anticoagulant Anticardiolipin antibodies Elevated serum homocysteine Heparin-induced thrombocytopenia Other congenital or acquired thrombophilia Stroke (< 1 month) Elective arthroplasty Hip, pelvis, or leg fracture Acute spinal cord injury (< 1 month) Prophylaxis Regimen Total Risk Factor Score Risk Level Prophylaxis Regimen 0-1 Low Early ambulation 2 Moderate Order ONE of the following: *Sequential Compression Device (SCD) *Heparin 5000 units SQ BID 3-4 Higher Order ONE of the following medications: *Heparin 5000 units SQ TID *Enoxaparin/Lovenox 40 mg SQ daily (WT < 150 kg, CrCl > 30 mL/min) *Enoxaparin/Lovenox 30 mg SQ daily (WT < 150 kg, CrCl > 10-29 mL/min) *Enoxaparin/Lovenox 30 mg SQ BID (WT < 150 kg, CrCl > 30 mL/min) AND/OR *Sequential Compression Device (SCD) 5 or more Highest Order ONE of the following medications: *Heparin 5000 units SQ TID (Preferred with Epidurals) *Enoxaparin/Lovenox 40 mg SQ daily (WT < 150 kg, CrCl > 30 mL/min) *Enoxaparin/Lovenox 30 mg SQ daily (WT < 150 kg, CrCl > 10-29 mL/min) *Enoxaparin/Lovenox 30 mg SQ BID (WT < 150 kg, CrCl > 30 mL/min) AND *Sequential Compression Device (SCD) Assessment and Plan Assessment and Plan Assessment/plan: 1. Shortness of breath/COPD exacerbation IV steroids DuoNebs Supplemental oxygen prn Chest x-ray without pulmonary edema or acute process, reviewed by me 2. Chest pain/CAD Worse with deep inspiration, bilateral Initial troponin negative EKG with T-wave inversion in V5/V6, NSR without ST segment elevations or depressions unchanged from previous, images reviewed by me Patient with history of CAD and stent placement 2 in 2011 Anticoagulated on Coumadin, INR therapeutic at 2.8 Serial EKGs/troponins 3. CHF Patient's recruiting specialist is Dr. Streeter in [place] No recent ECHO for comparison Continue home lasix 4. Diabetes mellitus Holding home metformin SSI Monitor blood glucose 5. Chronic medical problems: Hypertension/hyperlipidemia/dementia Continue home medications FEN Heart healthy diabetic diet Electrolytes: monitor and replete prn Coumadin Case discussed with ER physician Tiffanie Chappell MD Jul 07, 2017 19:40
[2017-07-07] MEDS ORDERED: GLUCAGON 1 MG/ML VIAL OTHER PRN (19:45)
[2017-07-07] MEDS ORDERED: DEXTROSE 50% IN WATER 50 ML VIAL(D50) IV PUSH PRN (19:45)
[2017-07-07] MEDS: MORPHINE SULFATE 2 MG/ML INJ IV PUSH PRN (19:54)
[2017-07-07] MEDS ORDERED: HEPARIN SODIUM - SQ 10,000 UNITS/ML VIAL SQ SCH (20:00)
[2017-07-07] MEDS ORDERED: cloNIDine HCL 0.2 MG TAB PO ONE (20:15)
[2017-07-07] MEDS: INSULIN ASPART SUPPLEMENTAL SCALE SQ SCH (21:00)
[2017-07-07] MEDS: SODIUM CHLORIDE 0.9% FLUSH 10 ML FLUSH IV FLUSH SCH (21:24)
[2017-07-07] MEDS: POTASSIUM CHLORIDE 20 MEQ CONTROLLED RELEASE TAB PO SCH (21:28)
[2017-07-07] MEDS: FUROSEMIDE 40 MG TAB PO SCH (21:28)
[2017-07-07 23:36] LABS: TROPONIN I 0.04 NG/ML (0.02-0.05)
[2017-07-08] VITALS (10 sets, daily range): BP systolic 132–217; BP diastolic 63–98; PULSE 61–77; RESP 18–20; TEMP 97.4–98; O2SAT 93–99
[2017-07-08] MEDS: MORPHINE SULFATE 2 MG/ML INJ IV PUSH PRN ×2 (05:57→09:17)
[2017-07-08 05:58] LABS: HEMATOCRIT 41.7 % (35.0-46.0); HEMOGLOBIN 13.1 GM/DL (11.6-15.3); MEAN CELL VOLUME 80.4 FL (80.0-100.0); MEAN CORPUSCULAR HEMOGLOBIN 25.2 PG (27.0-34.0); MEAN CORPUSCULAR HGB CONC 31.4 % (32.0-36.0); MEAN PLATELET VOLUME 8.1 FL (7.0-11.0); PLATELET COUNT 300 TH/MM3 (150-450); RED BLOOD COUNT 5.19 MIL/MM3 (4.00-5.30); RED CELL DISTRIBUTION WIDTH 18.7 % (11.6-17.2); WHITE BLOOD COUNT 10.9 TH/MM3 (4.0-11.0)
[2017-07-08] MEDS ORDERED: methylPREDNISolone SOD SUCC 40 MG/1 ML VIAL IV PUSH SCH (06:00)
[2017-07-08 06:26] LABS: BICARBONATE 23.7 MEQ/L (21.0-32.0); CALCIUM 8.8 MG/DL (8.5-10.1); CREATININE 0.95 MG/DL (0.50-1.00); TROPONIN I 0.02 NG/ML (0.02-0.05)
[2017-07-08 06:40] LABS: BANDS 2 % (0-6); LYMPHOCYTES 4 % (9-44); MONOCYTES 2 % (0-8); NEUTROPHIL # MANUAL DIFF 10.2 TH/MM3 (1.8-7.7); POLYS (SEG NEUTROPHILS) 92 % (16-70)
[2017-07-08 06:41] LABS: OVALOCYTES 1+ (NORMAL)
[2017-07-08] MEDS: DICYCLOMINE HCL 20 MG TAB PO SCH ×2 (08:22→12:53)
[2017-07-08] MEDS: FUROSEMIDE 40 MG TAB PO SCH (08:22)
[2017-07-08] MEDS: POTASSIUM CHLORIDE 20 MEQ CONTROLLED RELEASE TAB PO SCH (08:22)
[2017-07-08] MEDS: SODIUM CHLORIDE 0.9% FLUSH 10 ML FLUSH IV FLUSH SCH (08:23)
[2017-07-08] MEDS: INSULIN ASPART SUPPLEMENTAL SCALE SQ SCH ×2 (08:23→12:51)
[2017-07-08] MEDS ORDERED: ENALAPRILAT 1.25 MG/ML VIAL IV PUSH PRN (08:30)
[2017-07-08] MEDS ORDERED: cloNIDine HCL 0.1 MG TAB PO PRN (08:30)
[2017-07-08] MEDS ORDERED: cloNIDine HCL 0.1 MG TAB PO SCH (09:00)
[2017-07-08] MEDS ORDERED: PANTOPRAZOLE SOD 20 MG DELAYED RELEASE TAB PO SCH (09:00)
[2017-07-08] MEDS ORDERED: DONEPEZIL HCL 5 MG TAB PO SCH (09:00)
[2017-07-08] MEDS ORDERED: traZODone HCL 100 MG TAB PO SCH (09:00)
[2017-07-08] MEDS ORDERED: oxyCODONE HCL 10 MG CONTROLLED RELEASE TAB PO ONE (10:00)
[2017-07-08] MEDS ORDERED: NON-FORMULARY DRUG (Oxycodone 30 MG) PO PRN (10:00)
[2017-07-08] MEDS ORDERED: ACETAMINOPHEN/HYDROcodone 325 MG/5 MG TAB PO PRN (10:00)
[2017-07-08] MEDS ORDERED: ALBU6.7H INH (13:15)
[2017-07-08] MEDS ORDERED: LACTTAB8 PO (13:15)
[2017-07-08] MEDS ORDERED: AZIT500T2 PO (13:15)
[2017-07-08] MEDS ORDERED: PRED20 PO (13:15)
--- NOTE | 2017-07-08 13:18 | HHI.DS ---
Discharge Summary Admission Date Jul 07, 2017 at 19:05 Discharge Date: Jul 08, 2017 Admitting Diagnosis COPD, chest pain (1) COPD exacerbation ICD Code: J44.1 - Chronic obstructive pulmonary disease with (acute) exacerbation (2) Bronchitis ICD Code: J40 - Bronchitis, not specified as acute or chronic (3) COPD (chronic obstructive pulmonary disease) ICD Code: J44.9 - Chronic obstructive pulmonary disease, unspecified Procedures None Brief History - From Admission 67-year-old developed a past medical history of CHF, COPD, CAD, diabetes, hypertension, hyperlipidemia, dementia and degenerative disc disease presents to the emergency department with increasing shortness of breath and lower extremity edema. The patient reports her symptoms started yesterday. She endorses chest pain which is bilateral and worse with inspiration. She has a nonproductive cough. Positive chills, no fevers. Mild leukocytosis of 11.6. BNP 607. Chest x-ray without interstitial edema. EKG shows T-wave inversion in V5/56 with NSR and no ST segment elevations or depressions. Initial troponin negative. CBC/BMP: 07/08/17 0537 07/08/17 0537 Significant Findings Laboratory Tests Test 07/07/17 16:44 07/07/17 23:12 07/08/17 05:37 White Blood Count 11.6 TH/MM3 (4.0-11.0) Mean Corpuscular Hemoglobin 26.4 PG (27.0-34.0) 25.2 PG (27.0-34.0) Red Cell Distribution Width 18.3 % (11.6-17.2) 18.7 % (11.6-17.2) Monocytes (%) (Auto) 9.3 % (0.0-8.0) Monocytes # (Auto) 1.1 TH/MM3 (0-0.9) Prothrombin Time 28.7 SEC (9.8-11.6) Activated Partial Thromboplast Time 42.7 SEC (24.3-30.1) Random Glucose 115 MG/DL (74-106) 195 MG/DL (74-106) Albumin 3.1 GM/DL (3.4-5.0) Alkaline Phosphatase 120 U/L (45-117) Aspartate Amino Transf (AST/SGOT) 44 U/L (15-37) Alanine Aminotransferase (ALT/SGPT) 61 U/L (10-53) Chloride Level 108 MEQ/L (98-107) 109 MEQ/L (98-107) Estimat Glomerular Filtration Rate 66 ML/MIN (>89) 58 ML/MIN (>89) B-Type Natriuretic Peptide 607 PG/ML (0-100) Mean Corpuscular Hemoglobin Concent 31.4 % (32.0-36.0) Neutrophils % (Manual) 92 % (16-70) Lymphocytes % 4 % (9-44) Neutrophils # (Manual) 10.2 TH/MM3 (1.8-7.7) Platelet Morphology Comment ENLARGED (NORMAL) Ovalocytes 1+ (NORMAL) Blood Urea Nitrogen 20 MG/DL (7-18) Hospital Course Mrs. Fontaine is a 67-year-old female. She was admitted secondary to chest pain and COPD exacerbation. Chest pain workup is negative. Episodes of hypertensive urgency were present, she was receiving breathing treatments however. Her blood pressures have stabilized. Her COPD exacerbation has improved with steroids. Today an oxywalk test was performed and she was able tolerate ambulation without oxygen maintain saturations greater than 95%. She requests discharge. Medically stable for discharge to home today with continuation of steroids and antibiotics and an as needed inhaler. Pt Condition on Discharge: Stable Discharge Disposition: Discharge Home Discharge Time: <= 30 minutes Discharge Instructions DIET: Follow Instructions for: As Tolerated, No Restrictions Activities you can perform: Regular-No Restrictions Follow up Referrals: PCP Follow-up - 2 Weeks New Medications: Albuterol 6.7 GM Inh (Proventil Hfa 6.7 GM Inh) 90 Mcg/Act Aer 2 PUFF INH Q4-6H PRN for SHORTNESS OF BREATH, #1 INHALER 0 Refills Azithromycin (Azithromycin) 500 Mg Tab 500 MG PO DAILY for Infection, #5 TAB 0 Refills Lactobacillus Acidophilus (Lactobacillus Acidophilus) 1 Billion Cell Tab 1 TAB PO TIDAC for Nutritional Supplement, #30 TAB 0 Refills Prednisone (Prednisone) 20 Mg Tab 20 MG PO BID for Inflammation, #6 TAB 0 Refills Continued Medications: Clonidine (Clonidine) 0.1 Mg Tab 0.1 MG PO DAILY for Blood Pressure Management, #60 TAB 0 Refills Dicyclomine (Dicyclomine) 20 Mg Tab 20 MG PO TID for 30 Days, #90 TAB Donepezil HCl (Aricept) 10 Mg Tablet 10 MG PO DAILY Furosemide (Lasix) 40 Mg Tab 40 MG PO BID, #60 TAB 0 Refills Meclizine (Meclizine) 12.5 Mg Tab 12.5 MG PO BID PRN for DIZZINESS, TAB 0 Refills Omeprazole (Omeprazole) 20 Mg Tab 20 MG PO DAILY, #30 TAB 0 Refills Oxycodone (Oxycodone) 30 Mg Tab 30 MG PO Q12HR PRN for PAIN, TAB 0 Refills Potassium Chloride Microencaps (Potassium Chloride Microencaps) 20 Meq Tab 20 MEQ PO BID for Electrolyte Replacement, #60 TAB 0 Refills Tizanidine (Tizanidine) 2 Mg Cap 2 MG PO DAILY PRN for MUSCLE SPASM, CAP 0 Refills Trazodone (Trazodone) 50 Mg Tab 100 MG PO DAILY for Control Depression, #90 TAB 0 Refills Warfarin (Jantoven) 5 Mg Tab 5 MG PO DAILY for Blood Clot Prevention, #30 TAB 0 Refills Kaden Ken MD Jul 08, 2017 13:17
[2017-07-08] MEDS ORDERED: WARFARIN SOD 5 MG TAB PO SCH (16:00)
--- NOTE | 2017-07-08 17:27 | EKG ---
Date Performed: 07/07/2017 Time Performed: 16:38:51 PTAGE: 67 years EKG: Sinus rhythm SEPTAL MYOCARDIAL INFARCTION MODERATE T-WAVE ABNORMALITY, CONSIDER LATERAL ISCHEMIA Since previous t racing, no significant change noted ABNORMAL ECG PREVIOUS TRACING : 04/16/2017 13.45 DOCTOR: Reta Bear Interpretating Date/Time 07/08/2017 17:27:00
--- NOTE | 2017-07-08 17:28 | EKG ---
Date Performed: 07/08/2017 Time Performed: 05:39:04 PTAGE: 67 years EKG: Sinus rhythm WITH SINUS ARRHYTHMIA SEPTAL MYOCARDIAL INFARCTION Since previous tracing, no significant change not ed ABNORMAL ECG PREVIOUS TRACING : 07/08/2017 01.35 DOCTOR: Reta Bear Interpretating Date/Time 07/08/2017 17:27:58
--- NOTE | 2017-07-08 17:28 | EKG ---
Date Performed: 07/08/2017 Time Performed: 01:35:46 PTAGE: 67 years EKG: Sinus rhythm SEPTAL MYOCARDIAL INFARCTION Since previous tracing, no significant change noted ABNORMAL ECG PREVIOUS TRACING : 07/07/2017 16.38 DOCTOR: Reta Bear Interpretating Date/Time 07/08/2017 17:27:49
== END 2017-07-08 14:20 | disposition home or self-care (01) ==
LOC: NEPE 16:12 → NEDA 19:05 → NEPGCP 21:46
PROVIDERS: ADMIT Hospitalist; ATTEND Hospitalist
DX: J44.1 Chronic obstructive pulmonary disease with (acute) exacerbation (principal); I50.9 Heart failure, unspecified; R07.9 Chest pain, unspecified; M79.89 Other specified soft tissue disorders; R05 Cough; Z79.01 Long term (current) use of anticoagulants; I25.2 Old myocardial infarction; E78.00 Pure hypercholesterolemia, unspecified; I11.0 Hypertensive heart disease with heart failure; Z86.73 Personal history of transient ischemic attack (TIA), and cerebral infarction without residual deficits; F03.90 Unspecified dementia, unspecified severity, without behavioral disturbance, psychotic disturbance, mood disturbance, and anxiety; E11.9 Type 2 diabetes mellitus without complications; K21.9 Gastro-esophageal reflux disease without esophagitis; G47.30 Sleep apnea, unspecified; Z79.899 Other long term (current) drug therapy; I25.10 Atherosclerotic heart disease of native coronary artery without angina pectoris; I35.0 Nonrheumatic aortic (valve) stenosis; Z95.5 Presence of coronary angioplasty implant and graft; Z79.84 Long term (current) use of oral hypoglycemic drugs; D72.829 Elevated white blood cell count, unspecified; I16.0 Hypertensive urgency
CPT/HCPCS: 71010; 80048; 80053; 82550; 82948; 83880; 84484; 85007; 85025; 85027; 85610; 85730; 87804; 93005; 94620; 94640; 94664; 96372; 96374; 96375; 96376; 99285; G0378; J1815; J2270; J2920; J2930